=== PATIENT | female | born 1935 | race Hispanic/Latino ===

== ENCOUNTER 2019-04-23 12:38 | Emergency (ER) | payer OTHER ==
[~2019-04-23 12:38] MED LIST: BIMA12.5OS OU; CETI10TA86 PO; CHOL200059 PO; COMB5OS OU; CYAN-52 PO; ESOM40SU PO; ESTRACE VAG CREAM; FURO20TA6 PO; MULT-1203 PO; NIFE30TA10 PO; ONDA8TAB11 PO; PILO4OS OU
[2019-04-23] MEDS ORDERED: ACETAMINOPHEN-CODEINE 300/30MG TAB ONE (13:30)
[2019-04-23 13:43] LABS: BASOPHILS % (AUTO) 0.6 % (0.0-5.0); EOSINOPHILS % (AUTO) 0.8 % (0.0-8.0); HEMATOCRIT 35.9 % (36-48); LYMPHOCYTES % (AUTO) 21.3 % (21.0-51.0); MEAN CORPUSCULAR HEMOGLOBIN 32.5 pg (27.0-33.0); MEAN CORPUSCULAR HGB CONC 32.9 g/dL (32.0-36.0); MEAN CORPUSCULAR VOLUME 98.9 fL (79-99); MONOCYTES % (AUTO) 9.2 % (3.0-13.0); NEUTROPHILS % (AUTO) 67.3 % (40.0-77.0); PLATELET COUNT (AUTO) 228 K/uL (130-400); RED BLOOD CELL COUNT(AUTO) 3.63 MIL/uL (4.00-5.50); RED CELL DISTRIBUTION WIDTH 15.7 % (11.0-15.5)
[2019-04-23 14:00] LABS: CREATININE 1.6 mg/dL (0.5-1.5); POTASSIUM 4.2 mmol/L (3.5-5.1)
== END 2019-04-23 15:42 | disposition home or self-care (01) ==
LOC: EDH 12:38
DX: S00.83XA Contusion of other part of head, initial encounter (principal); S20.219A Contusion of unspecified front wall of thorax, initial encounter; I10 Essential (primary) hypertension; I25.10 Atherosclerotic heart disease of native coronary artery without angina pectoris; F32.9 Major depressive disorder, single episode, unspecified; F41.9 Anxiety disorder, unspecified; I48.91 Unspecified atrial fibrillation; Z88.1 Allergy status to other antibiotic agents; Z91.041 Radiographic dye allergy status; Z88.2 Allergy status to sulfonamides; Z90.49 Acquired absence of other specified parts of digestive tract; Z98.890 Other specified postprocedural states; W18.2XXA Fall in (into) shower or empty bathtub, initial encounter; Y93.01 Activity, walking, marching and hiking; Y92.89 Other specified places as the place of occurrence of the external cause; Y99.8 Other external cause status
CPT/HCPCS: 36415; 70450; 71045; 80048; 85025; 93005

== ENCOUNTER 2020-02-03 09:29 | Day surgery (SDC) | payer MEDICARE ==
[2020-01-30 09:43] LABS: HEMATOCRIT 32.8 % (36-48); MEAN CORPUSCULAR HEMOGLOBIN 30.9 pg (27.0-33.0); MEAN CORPUSCULAR VOLUME 96.5 fL (79-99); RED BLOOD CELL COUNT(AUTO) 3.4 MIL/uL (4.00-5.50); RED CELL DISTRIBUTION WIDTH 14.4 % (11.0-15.5); WHITE BLOOD COUNT (AUTO) 8.1 K/uL (4.8-10.8)
[2020-01-30 09:47] LABS: APPEARANCE,URINE Clear (CLEAR); BILIRUBIN,URINE Negative (NEGATIVE); COLOR,URINE Yellow (YELLOW); GLUCOSE, URINE (UA) Negative (NEGATIVE); KETONES,URINE Negative (NEGATIVE); LEUKOCYTE ESTERASE ,URINE Large (NEGATIVE); NITRATE,URINE Negative (NEGATIVE); OCCULT BLOOD,URINE Large (NEGATIVE); PROTEIN,URINE POS 2+ mg/dL (NEGATIVE); UROBILINOGEN,URINE 0.2 mg/dL (0.2-1.0)
[2020-01-30 09:54] LABS: BACTERIA,URINE Few /HPF (None Seen); RBC,URINE 0-1 /HPF (0-1); WBC,URINE 26-50 /HPF (0-1)
[2020-01-30 09:55] LABS: SQUAMOUS EPITHELIAL CELL,UR Few /HPF (0-2)
[2020-01-30 09:56] LABS: INR 0.98 (0.85-1.15); PARTIAL THROMBOPLASTIN TIME 29.2 SEC (26.3-35.5); PROTHROMBIN TIME 10.6 SEC (9.6-11.6)
[2020-01-30 10:17] LABS: BILIRUBIN,TOTAL 0.5 mg/dL (0.2-1.0); TOTAL PROTEIN, SERUM 7.6 g/dL (6.0-8.3)
[2020-02-02 14:19] VITALS: BP 225/100
--- NOTE | 2020-02-02 15:21 | NUR ---
MD notified Called Dr. Burden to make him aware of abnormal labs and that as per pt's daughter, pt can not have the fleets enema done this evening as per order due to pt having colon reconstruction surgery in the past and was told she could not have anything inserted rectally. Daughter states she also notified office but no call was returned. Message was left regarding enema and labs were faxed over to office. Addendum: 02/02/20 at 1538 by SOCRATES GIBBONS RN RN Call was received from Dr. Burden's office. Stated pt can have castor oil or laxative of choice. Called Mrs. Bae (pt's daughter) and made aware
[~2020-02-03] VITALS: Ht 166.4 cm; Wt 86.0 kg
[2020-02-03] VITALS (22 sets, daily range): BP systolic 125–156; BP diastolic 45–74
[~2020-02-03 09:29] MED LIST changes: +AMIO100T4 PO; +CEPH500T PO; -CETI10TA86 PO; -CHOL200059 PO; -COMB5OS OU; -ESOM40SU PO; -ESTRACE VAG CREAM; +FOLI0.8T21 PO; +LACTATED RINGERS 1000ML 1,000 ML IV ONE; +MITOMYCIN 40 MG VIAL IV SCH; -ONDA8TAB11 PO; -PILO4OS OU; +TAMS-1 PO; +VANCOMYCIN 500MG+NS 100ML 100 ML IV SCH; +ZOSYN 3.375GM+NS 50ML 50 ML IV SCH
[2020-02-03] MEDS ORDERED: LIDOCAINE PF 2% 5ML ABBOJECT ONE (10:09)
[2020-02-03] MEDS ORDERED: SUCCINYLCHOLINE 200MG/10ML SYR ONE (10:09)
[2020-02-03] MEDS ORDERED: PROPOFOL 10 MG/ML 20ML VIAL IV ONE (10:10)
[2020-02-03] MEDS ORDERED: MITOMYCIN 40 MG VIAL ONE (10:11)
[2020-02-03] MEDS ORDERED: KETAMINE 50MG/ML SYRINGE 50 MG/ML DISP.SYRIN IV ONE (10:14)
[2020-02-03] MEDS ORDERED: ROCURONIUM 10MG/1ML SYR 10 MG/ML ML ONE (10:50)
[2020-02-03] MEDS ORDERED: PHENYLEPHRINE HCL 10 MG/ML 1ML VIAL IV ONE (11:35)
[2020-02-03] MEDS ORDERED: GLYCOPYRROLATE 1 MG/5 ML SYRINGE ONE (11:42)
[2020-02-03] MEDS ORDERED: NEOSTIGMINE 5MG/5ML SYR IV ONE (11:42)
[2020-02-03] MEDS ORDERED: ONDANSETRON HCL 4 MG/2 ML VIAL ONE (11:43)
--- NOTE | 2020-02-03 15:16 | NUR ---
vance catheter: cbi stopped after 3 hours plugged inflow port to vance catheter as ordered by dr. arevalo
== END 2020-02-03 15:10 | disposition home or self-care (01) ==
LOC: DAH 09:29
PROVIDERS: ATTEND Urology
DX: C67.9 Malignant neoplasm of bladder, unspecified (principal); N21.0 Calculus in bladder; R31.0 Gross hematuria; I10 Essential (primary) hypertension; I25.10 Atherosclerotic heart disease of native coronary artery without angina pectoris; K21.9 Gastro-esophageal reflux disease without esophagitis; J45.909 Unspecified asthma, uncomplicated; I48.91 Unspecified atrial fibrillation; M19.90 Unspecified osteoarthritis, unspecified site; Z88.1 Allergy status to other antibiotic agents; Z88.8 Allergy status to other drugs, medicaments and biological substances; Z79.899 Other long term (current) drug therapy; Z20.828 Contact with and (suspected) exposure to other viral communicable diseases
CPT/HCPCS: 36415 ×2; 52240; 71046; 80053; 81001; 82360; 85027; 85610; 85730; 87088; 93005; A4215; A4221; A4222; A4223; A4335; A4346; A4354; A4358; A4600; A4606; A4663; A4930; A6260; C9803; J0330; J2001; J2370; J2405; J2543; J2704; J2710; J3370; J3490 ×2; J7030; J7120; J9280; U0003

== ENCOUNTER 2020-03-09 10:46 | Observation (INO) | payer MEDICARE ==
[2020-03-05 09:34] LABS: EOSINOPHILS % (AUTO) 2.8 % (0.0-8.0); HEMATOCRIT 32.8 % (36-48); LYMPHOCYTES % (AUTO) 18.1 % (21.0-51.0); MEAN CORPUSCULAR HEMOGLOBIN 30.4 pg (27.0-33.0); MEAN CORPUSCULAR VOLUME 95.1 fL (79-99); MONOCYTES % (AUTO) 9.1 % (3.0-13.0); NEUTROPHILS % (AUTO) 68.4 % (40.0-77.0); PLATELET COUNT (AUTO) 348 K/uL (130-400); RED BLOOD CELL COUNT(AUTO) 3.45 MIL/uL (4.00-5.50); WHITE BLOOD COUNT (AUTO) 7.8 K/uL (4.8-10.8)
[2020-03-05 09:51] LABS: INR 0.93 (0.85-1.15); PARTIAL THROMBOPLASTIN TIME 27.2 SEC (26.3-35.5); PROTHROMBIN TIME 10.1 SEC (9.6-11.6)
[2020-03-05 09:52] LABS: ALBUMIN 2.8 g/dL (3.5-5.0); BILIRUBIN,TOTAL 0.5 mg/dL (0.2-1.0); CREATININE 1.3 mg/dL (0.5-1.5); POTASSIUM 4.1 mmol/L (3.5-5.1); TOTAL PROTEIN, SERUM 7.3 g/dL (6.0-8.3)
[2020-03-05 10:31] LABS: APPEARANCE,URINE Turbid (CLEAR); BILIRUBIN,URINE Negative (NEGATIVE); COLOR,URINE Yellow (YELLOW); GLUCOSE, URINE (UA) Negative (NEGATIVE); KETONES,URINE Trace mg/dL (NEGATIVE); LEUKOCYTE ESTERASE ,URINE Large (NEGATIVE); NITRATE,URINE Negative (NEGATIVE); OCCULT BLOOD,URINE Large (NEGATIVE); PROTEIN,URINE 300 mg/dL (NEGATIVE)
[2020-03-05 11:47] LABS: BACTERIA,URINE Many /HPF (None Seen)
[2020-03-05 13:29] VITALS: BP 140/76
[2020-03-08] MEDS: LACTATED RINGERS 1000ML 1,000 ML IV SCH ×2 (10:45→20:45)
--- NOTE | 2020-03-08 13:52 | NUR ---
REJI AT DR. WINN OFFICE NOTIFIED OF ABNORMAL UA/C&S RESULTS, FAXED PENDING RESPONSE.
[~2020-03-09] VITALS: Ht 167.6 cm; Wt 85.4 kg
[2020-03-09] VITALS (26 sets, daily range): BP systolic 106–147; BP diastolic 40–76
[2020-03-09] MEDS: ZOSYN 3.375GM+NS 50ML 50 ML IV SCH ×3 (06:00→22:27)
[2020-03-09] MEDS: LACTATED RINGERS 1000ML 1,000 ML IV SCH ×2 (06:45→16:45)
[~2020-03-09 10:46] MED LIST changes: -CEPH500T PO; -LACTATED RINGERS 1000ML 1,000 ML IV ONE; +LORA0.5T83 PO; +NITR100C4 PO; -VANCOMYCIN 500MG+NS 100ML 100 ML IV SCH; -ZOSYN 3.375GM+NS 50ML 50 ML IV SCH
--- NOTE | 2020-03-09 12:30 | NUR ---
PT TRANSFERRED TO ROOM 4 DAYPATIENT -TO WAIT FOR DR WINN 1400. DAYPT STAFF INFORMED
[2020-03-09] MEDS ORDERED: VANCOMYCIN 500MG+NS 100ML 100 ML IV SCH (12:45)
[2020-03-09] MEDS ORDERED: ROCURONIUM 10MG/1ML SYR 10 MG/ML ML ONE (15:38)
[2020-03-09] MEDS ORDERED: SUCCINYLCHOLINE 200MG/10ML SYR ONE (15:38)
[2020-03-09] MEDS ORDERED: LIDOCAINE PF 2% 5ML ABBOJECT ONE (15:38)
[2020-03-09] MEDS ORDERED: FENTANYL CITRATE PF 50 MCG/1 ML 2ML VIAL ONE ×2 (15:38→16:25)
[2020-03-09] MEDS ORDERED: PROPOFOL 10 MG/ML 20ML VIAL IV ONE (15:38)
[2020-03-09] MEDS ORDERED: EPHEDRINE SULFATE 50 MG/ML AMPULE ONE (16:23)
[2020-03-09] MEDS ORDERED: AMINOCAPROIC ACID 250 MG/ML 20 ML VIAL ONE ×2 (17:47→17:48)
[2020-03-09] MEDS ORDERED: GLYCOPYRROLATE 1 MG/5 ML SYRINGE ONE (17:49)
[2020-03-09] MEDS ORDERED: NEOSTIGMINE 5MG/5ML SYR IV ONE (17:49)
[2020-03-09] MEDS ORDERED: MIDAZOLAM HCL 1 MG/ML 2ML VIAL ONE (18:17)
[2020-03-09 19:15] LABS: BASOPHILS % (AUTO) 0.8 % (0.0-5.0); EOSINOPHILS % (AUTO) 2.1 % (0.0-8.0); HEMATOCRIT 32.4 % (36-48); MEAN CORPUSCULAR HEMOGLOBIN 30.4 pg (27.0-33.0); MEAN CORPUSCULAR HGB CONC 32.1 g/dL (32.0-36.0); MEAN CORPUSCULAR VOLUME 94.7 fL (79-99); NEUTROPHILS % (AUTO) 85.5 % (40.0-77.0); PLATELET COUNT (AUTO) 327 K/uL (130-400); RED BLOOD CELL COUNT(AUTO) 3.42 MIL/uL (4.00-5.50); WHITE BLOOD COUNT (AUTO) 7.1 K/uL (4.8-10.8)
[2020-03-09 19:20] LABS: CREATININE 1.2 mg/dL (0.5-1.5); POTASSIUM 3.6 mmol/L (3.5-5.1)
--- NOTE | 2020-03-09 19:20 | NUR ---
ADMIT PT RECEIVED FROM ROBERTA, PACU NURSE. PT IS AA0X2, NO COMPLAINTS MADE AT THIS TIME. WITH CBI ONGOING LIGHT PINK OUTPUT CONTINUED. IVF OF NS WITH AMICAR CONTINUED AT 75CC/HR INFUSION. KEPT WARM AND COMFORTABLE IN BED. POST OP V/S STARTED, STABLE. ADMISSION CARED ONE. ADMISSION DATA BASE COMPLETED. PT'S DAUGHTER IS STAYING THE NIGHT. RESOURCE NURSE AWARE AND SECURITY GUARDS MADE AWARE. IN FOR MORE CARE AND MANAGEMENT. Addendum: 03/09/20 at 2221 by MCKINLEY COURTNEY RN RN Amended: Links added.
[2020-03-09 19:25] LABS: ALBUMIN 2.6 g/dL (3.5-5.0); BILIRUBIN,TOTAL 0.8 mg/dL (0.2-1.0)
[2020-03-09] MEDS ORDERED: ONDANSETRON HCL 4 MG/2 ML VIAL IVP PRN (21:15)
[2020-03-09] MEDS ORDERED: MEPERIDINE-PF 75 MG/ML SYG IM PRN (21:15)
[2020-03-09] MEDS ORDERED: LORAZEPAM 0.5 MG TABLET PO PRN (21:30)
[2020-03-09] MEDS ORDERED: ACETAMINOPHEN-CODEINE 300/30MG TAB PO PRN (21:30)
[2020-03-09] MEDS ORDERED: ACETAMINOPHEN 325 MG TAB PO PRN (21:30)
--- NOTE | 2020-03-09 22:30 | NUR ---
MEDS PT RESTING WELL, NO DISTRESS NOTED. CBI CONTINUED, TITRATED INFUSION SLOWER OUTPUT IS ALREADY CLEAR LIGHT PINK IN COLOR. ZOSYN IV HUNG. KEPT COMFORTABLE IN BED. CALL LIGHT WITHIN REACH. FAMILY AT BEDSIDE IN ATTENDANCE TO NEEDS AT THIS TIME.
--- NOTE | 2020-03-10 02:00 | NUR ---
ROUNDS PT RESTING WELL, FAIRLY ASLEEP WITH RESPIRATIONS EVEN AND UNLABORED. NO NOTED DISTRESS. KEPT UNDISTURBED FOR NOW. CONTINUED CBI, STILL WITH LIGHT PINK COLORED OUTPUT, CLEAR. WILL CONTINUE TO MONITOR.
[2020-03-10 04:20] VITALS: BP 115/65
[2020-03-10] MEDS: ZOSYN 3.375GM+NS 50ML 50 ML IV SCH (04:56)
[2020-03-10 05:52] LABS: HEMATOCRIT 29.1 % (36-48); MEAN CORPUSCULAR HEMOGLOBIN 29.6 pg (27.0-33.0); MEAN CORPUSCULAR HGB CONC 31.3 g/dL (32.0-36.0); MEAN CORPUSCULAR VOLUME 94.8 fL (79-99); RED BLOOD CELL COUNT(AUTO) 3.07 MIL/uL (4.00-5.50); RED CELL DISTRIBUTION WIDTH 15.1 % (11.0-15.5)
[2020-03-10] MEDS ORDERED: LACTATED RINGERS 1000ML 1,000 ML IV SCH (06:00)
--- NOTE | 2020-03-10 06:05 | NUR ---
ROUNDS PT RESTING WELL. NO CONCERNS VERBALIZED. CBI OUTPUT ALREADY CLEAR. TITRATED TO SLOW DRIP AT THIS TIME. FOR MORE CARE.
[2020-03-10 06:11] LABS: CREATININE 1.2 mg/dL (0.5-1.5)
--- NOTE | 2020-03-10 06:44 | NUR ---
PAGED DR WINN PAGED VIA ANSWERING SERVICE TO INFORM OF CRITICAL VALUE OF KCL=3.0. AWAITING CALL BACK.
--- NOTE | 2020-03-10 06:48 | NUR ---
MD DR WINN CALLED BACK, NEW MED ORDER GIVEN. PLEASE REFER TO CPOE.
[2020-03-10] MEDS ORDERED: POTASSIUM CHLORIDE 20 MEQ ERTAB PO PRN (07:00)
[2020-03-10] MEDS ORDERED: POTASSIUM CHLORIDE 20MEQ/100ML 100 ML IV PRN (07:00)
[2020-03-10] MEDS ORDERED: LIDOCAINE HCL-MPF 1% 2ML VIAL IV PRN (07:00)
--- NOTE | 2020-03-10 08:05 | NUR ---
CLAMPED CBI OUTPUT IS CLEAR AND VERY LIGHT YELLOW. CLAMPED CBI FOR NOW. ENDORSED TO AM SHIFT NURSE, SITA, FOR MORE CARE AND MANAGEMENT.
[2020-03-10] MEDS: POTASSIUM CHLORIDE 10% ELIXIR 20 MEQ/15 ML UDCUP PO PRN ×2 (08:38→10:51)
[2020-03-10] MEDS ORDERED: BRIM5DRO OP (08:48)
[2020-03-10] MEDS ORDERED: LUMIGAN PO SCH (09:00)
[2020-03-10] MEDS ORDERED: FUROSEMIDE 20 MG TABLET PO SCH (09:00)
[2020-03-10] MEDS ORDERED: Vitamin B Complex/Vit C/Folic Acid PO SCH (09:00)
[2020-03-10] MEDS ORDERED: AMIODARONE HCL 200 MG TABLET PO SCH (09:00)
[2020-03-10] MEDS ORDERED: MULTIVITAMIN TABLET PO SCH (09:00)
[2020-03-10] MEDS ORDERED: NIFEDIPINE ER 30 MG TAB PO SCH (09:00)
[2020-03-10] MEDS ORDERED: NITROFURANTOIN MONOHYD/M-CRYST 100 MG CAPSULE PO SCH (09:00)
[2020-03-10] MEDS ORDERED: TAMSULOSIN HCL 0.4 MG CAP.ER.24H PO SCH (09:00)
[2020-03-10] MEDS ORDERED: CYANOCOBALAMIN (VITAMIN B-12) 1,000 MCG TABLET PO SCH (09:00)
[2020-03-10 09:59] VITALS: BP 124/61
--- NOTE | 2020-03-10 11:36 | NUR ---
[id number] patient's daughter signed CASTANEDA Letter, I faxed CASTANEDA Letter to [phone] and placed in chart under consent tab
--- NOTE | 2020-03-10 12:52 | NUR ---
physician rounding - Dr. Burden at bedside, assessed and talked to pt and daughter. pt is for discharge today with vance catheter
[2020-03-10] MEDS ORDERED: FERS325 PO (13:21)
[2020-03-10] MEDS ORDERED: FOLI1 PO (13:22)
[2020-03-10] MEDS ORDERED: ACET-2743 PO (13:23)
[2020-03-10 13:25] VITALS: BP 113/50
--- NOTE | 2020-03-10 14:30 | NUR ---
pt is discharged in stable condition, verbal and written discharge instructions given to daughter.prescription given, informed of the follow up appointment.informed to call the doctor for further concerns.daughter voiced understanding to all things discussed. Addendum: 03/10/20 at 1504 by SITA BOYKIN RN Amended: Links added.
--- NOTE | 2020-03-10 15:00 | NUR ---
pt is dismissed in stalbe condition, brought to private car via wheelchair by pooja - dave Addendum: 03/10/20 at 1906 by SITA BOYKIN RN Amended: Links added.
--- NOTE | 2020-03-10 16:24 | NUR ---
RD NOTIFICATION Pt admitted with Bladder CA. Pt is tolerating Heart Healthy diet order, no report of GI distress, Good PO intake at 50-75% as per family member. LBM 03/09/20. Monitored labs: K 3.0, GFR 45, Ca 8.2, Alb 2.6. Obesity I status, advanced age, no desire for weight loss. Nephrovite, B12, MVI, Lasix, KCl medications in place. Recommend continue current diet order RD to continue to monitor.
== END 2020-03-10 15:00 | disposition home or self-care (01) ==
LOC: DAH 10:46 → 3DH 10:47
PROVIDERS: ADMIT Urology; ATTEND Urology
DX: C67.9 Malignant neoplasm of bladder, unspecified (principal); Z20.828 Contact with and (suspected) exposure to other viral communicable diseases; E78.00 Pure hypercholesterolemia, unspecified; H91.90 Unspecified hearing loss, unspecified ear; I10 Essential (primary) hypertension; Z85.42 Personal history of malignant neoplasm of other parts of uterus; Z85.528 Personal history of other malignant neoplasm of kidney; Z90.5 Acquired absence of kidney; Z79.899 Other long term (current) drug therapy
CPT/HCPCS: 36415 ×3; 52240; 71046; 80048; 80053 ×2; 81001; 85025 ×2; 85027; 85610; 85730; 86850 ×2; 86900 ×2; 86901 ×2; 87077; 87088; 87186; 93005; 96361; 96365; 96366 ×2; 96367; A4215; A4221; A4222; A4223 ×2; A4354; A4358; A4663; A4930; A5113; C1758 ×2; C9803; G0378 ×26; J0330; J2001; J2250; J2543 ×3; J2704; J2710; J3370; J3480; J3490 ×4; J7030; J7120 ×4; U0003; 96368; J3010; J9280

== ENCOUNTER 2020-04-11 12:13 | Inpatient (IN) | payer MEDICARE ==
[~2020-04-11] VITALS: Ht 170.2 cm; Wt 98.4 kg
[~2020-04-11 12:13] MED LIST changes: +ACET-2743 PO; +BRIM5DRO OP; +FERS325 PO; +FOLI1 PO; -MITOMYCIN 40 MG VIAL IV SCH
[2020-04-11] MEDS ORDERED: PROCHLORPERAZINE EDISYLATE 10 MG/2 ML VIAL ONE (12:37)
[2020-04-11] MEDS ORDERED: LACTATED RINGERS 1000ML 1,000 ML IV ONE (12:38)
[2020-04-11] MEDS ORDERED: MORPHINE SULFATE 2 MG/ML 1ML SYG ONE ×2 (12:38→16:11)
[2020-04-11 13:12] LABS: HEMATOCRIT 25.9 % (36-48); LYMPHOCYTES % (AUTO) 32.7 % (21.0-51.0); MEAN CORPUSCULAR HEMOGLOBIN 29.7 pg (27.0-33.0); MEAN CORPUSCULAR HGB CONC 32.8 g/dL (32.0-36.0); MEAN CORPUSCULAR VOLUME 90.6 fL (79-99); NEUTROPHILS % (AUTO) 65.3 % (40.0-77.0); PLATELET COUNT (AUTO) 88 K/uL (130-400); RED BLOOD CELL COUNT(AUTO) 2.86 MIL/uL (4.00-5.50); RED CELL DISTRIBUTION WIDTH 15.9 % (11.0-15.5)
[2020-04-11 13:18] LABS: POTASSIUM 3.7 mmol/L (3.5-5.1)
[2020-04-11 13:19] LABS: INR 1.04 (0.85-1.15); PARTIAL THROMBOPLASTIN TIME 28.4 SEC (26.3-35.5); PROTHROMBIN TIME 11.2 SEC (9.6-11.6)
[2020-04-11 13:32] LABS: ALBUMIN 2.3 g/dL (3.5-5.0); MAGNESIUM 1.6 mg/dL (1.80-2.40); TOTAL PROTEIN, SERUM 5.2 g/dL (6.0-8.3)
[2020-04-11 13:41] LABS: CRP QUANTITATIVE 201.5 mg/L (0.00-9.0)
[2020-04-11 13:45] LABS: CREATININE 1.3 mg/dL (0.5-1.5)
[2020-04-11 13:47] LABS: WHITE BLOOD COUNT (AUTO) 0.5 K/uL (4.8-10.8)
[2020-04-11] MEDS ORDERED: ZOSYN 3.375GM+NS 50ML 50 ML IV ONE (15:12)
[2020-04-11] MEDS ORDERED: SODIUM CHLORIDE 0.9% 1000ML 1,000 ML IV ONE (15:12)
[2020-04-11] MEDS: SODIUM CHLORIDE 0.9% 1000ML 1,000 ML IV SCH (15:30)
[2020-04-11 15:39] LABS: APPEARANCE,URINE CLOUDY (CLEAR); BILIRUBIN,URINE NEGATIVE (NEGATIVE); COLOR,URINE YELLOW (YELLOW); GLUCOSE, URINE (UA) NEGATIVE (NEGATIVE); KETONES,URINE NEGATIVE (NEGATIVE); LEUKOCYTE ESTERASE ,URINE TRACE (NEGATIVE); NITRATE,URINE NEGATIVE (NEGATIVE); OCCULT BLOOD,URINE MODERATE (NEGATIVE); PH,URINE 7.5 (5.0-8.0); PROTEIN,URINE 100 mg/dL (NEGATIVE)
[2020-04-11 15:40] LABS: B-TYPE NATRIURETIC PEPTIDE 128 pg/mL (0-100)
[2020-04-11 15:51] LABS: BACTERIA,URINE Many /HPF (None Seen); MUCUS,URINE Few LPF (None Seen); SQUAMOUS EPITHELIAL CELL,UR 0-2 /HPF (0-2)
[2020-04-11 19:45] VITALS: BP 150/66
--- NOTE | 2020-04-11 19:45 | NUR ---
ADMIT PT ADMITTED TO ROOM 316, AAOX3 AND IS MOANING, COMPLAINING OF ABDOMINAL PAINS. PLACED PT COMFORTABLY IN BED WITH HOB ELEVATED. PT HAD AN EPISODE OF EMESIS. CONTINUED IVF FROM ER OF NS REGULATED AT 100CC/HR. ADMISSION CARE DONE. ADMISSION DATA BASE COMPLETED. WILL CHECK MD ORDERS FOR MEDS AND WILL MEDICATE PT. IN FOR MORE CARE AND MANAGEMENT. Addendum: 04/11/20 at 2221 by MCKINLEY COURTNEY RN RN Amended: Links added.
[2020-04-11] MEDS: ONDANSETRON HCL 4 MG/2 ML VIAL IVP PRN (20:13)
[2020-04-11] MEDS: VANCOMYCIN 1GM+NS 250ML 250 ML IV SCH (20:13)
[2020-04-11] MEDS: MORPHINE SULFATE 2 MG/ML 1ML SYG IVP PRN (20:14)
[2020-04-11] MEDS: TBO-FILGRASTIM 480 MCG/0.8 ML ML SQ SCH (21:03)
--- NOTE | 2020-04-11 22:00 | NUR ---
ROUNDS PT IS RESTING WELL, FAIRLY ASLEEP. NO DISTRESS NOTED. KEPT UNDISTURBED FOR NOW. WILL CONTINUE TO MONITOR. CALL LIGHT WITHIN REACH.
[2020-04-11] MEDS ORDERED: OXYB10TA30 PO (22:38)
[2020-04-11] MEDS ORDERED: CEPH500C2 PO (22:38)
[2020-04-11] MEDS ORDERED: DIPH1TAB24 PO (22:38)
[2020-04-11] MEDS ORDERED: MAGN400T53 PO (22:38)
[2020-04-11] MEDS ORDERED: OMEP20CA12 PO (22:38)
[2020-04-11] MEDS ORDERED: ACET-66 PO (22:38)
[2020-04-11] MEDS ORDERED: ONDA8TAB12 PO (22:39)
[2020-04-11] MEDS ORDERED: ONDANSETRON ODT 4 MG TAB PO PRN (23:15)
[2020-04-11] MEDS ORDERED: DIPHENOXYLATE HCL/ATROPINE 2.5/0.025 MG TAB PO PRN (23:15)
[2020-04-11] MEDS ORDERED: LORAZEPAM 0.5 MG TABLET PO PRN (23:15)
[2020-04-11] MEDS ORDERED: MAGNESIUM OXIDE 400 MG TABLET PO PRN (23:15)
[2020-04-11 23:58] VITALS: BP 147/85
[2020-04-12] MEDS: SODIUM CHLORIDE 0.9% 1000ML 1,000 ML IV SCH ×3 (01:05→20:00)
--- NOTE | 2020-04-12 02:00 | NUR ---
ROUNDS PT RESTING WELL, FAIRLY ASLEEP WITH RESPIRATIONS EVEN AND UNLABORED. NO DISTRESS NOTED. KEPT UNDISTURBED FOR NOW. WILL CONTINUE TO MONITOR. CALL LIGHT WITHIN REACH.
[2020-04-12] MEDS: ZOSYN 3.375GM+NS 50ML 50 ML IV SCH ×2 (03:05→16:55)
[2020-04-12 05:00] VITALS: BP 147/80
--- NOTE | 2020-04-12 05:41 | NUR ---
ROUNDS PT RESTING WELL, NO DISTRESS NOTED. NO CONCERNS VERBALIZED. KEPT RESTED. FOR MORE CARE AND MANAGEMENT.
[2020-04-12 07:53] LABS: BASOPHILS % (AUTO) 1.7 % (0.0-5.0); HEMATOCRIT 23.5 % (36-48); MEAN CORPUSCULAR HEMOGLOBIN 30.4 pg (27.0-33.0); MEAN CORPUSCULAR HGB CONC 33.2 g/dL (32.0-36.0); MEAN CORPUSCULAR VOLUME 91.4 fL (79-99); MONOCYTES % (AUTO) 3.5 % (3.0-13.0); NEUTROPHILS % (AUTO) 73.1 % (40.0-77.0); PLATELET COUNT (AUTO) 74 K/uL (130-400); RED BLOOD CELL COUNT(AUTO) 2.57 MIL/uL (4.00-5.50); RED CELL DISTRIBUTION WIDTH 15.7 % (11.0-15.5); WHITE BLOOD COUNT (AUTO) 1.2 K/uL (4.8-10.8)
[2020-04-12 08:00] VITALS: BP 142/75
[2020-04-12] MEDS ORDERED: PANTOPRAZOLE 40 MG/VIAL IVP SCH (09:00)
[2020-04-12] MEDS: VANCOMYCIN 1GM+NS 250ML 250 ML IV SCH (10:57)
[2020-04-12] MEDS: TIMOLOL MALEATE 0.5% 5 ML BOTTLE OP SCH ×2 (10:58→20:02)
[2020-04-12] MEDS: BRIMONIDINE TARTRATE 0.2% 5 ML BOTTLE OP SCH ×2 (10:59→20:02)
[2020-04-12 11:00] VITALS: BP 149/74
[2020-04-12] MEDS: NIFEDIPINE ER 30 MG TAB PO SCH (11:04)
[2020-04-12] MEDS: Vitamin B Complex/Vit C/Folic Acid PO SCH (11:04)
[2020-04-12] MEDS: FUROSEMIDE 20 MG TABLET PO SCH (11:05)
[2020-04-12] MEDS: PANTOPRAZOLE SODIUM 40 MG TABLET.DR PO SCH (11:07)
[2020-04-12] MEDS: TBO-FILGRASTIM 480 MCG/0.8 ML ML SQ SCH (11:07)
[2020-04-12] MEDS: AMIODARONE HCL 200 MG TABLET PO SCH (11:07)
[2020-04-12] MEDS: CYANOCOBALAMIN (VITAMIN B-12) 1,000 MCG TABLET PO SCH (11:28)
--- NOTE | 2020-04-12 11:57 | NUR ---
RD NOTIFICATION Pt admitted due to neutropenia/emesis Pt has hx of bladder cancer with recent invasive sx and treatment of chemotherapy and radiation, as per EMR. Pt is currently on a CLD. No PO intake recorded in EMR. As per previous EMR, pt's wt remained stable as of January 2020. RD RECOMMENDATION: When medically feasible to advance diet consider, Heart healthy diet. Monitor PO intake, and tolerance Pt may benefit from GI soft modifier due to reflux disease. Ensure BID if PO intake <50% ProMod 60 ml QD if pt's PO intake <75% LABS: ALB 2.3, TOT PRO 5.2, TOT CA 8.3, WBC 1.2, HGB 7.8, CREAT 1.3, MG 1.6 Addendum: 04/12/20 at [address] Amended: Links added.
--- NOTE | 2020-04-12 13:16 | NUR ---
GURPREET NOTE/IA MET WITH PATIENT AND DAUGHTER, AMADO, AT BEDSIDE. PER PATIENT, IS HARD OF HEARING AND OK TO ASK DAUGHTER QUESTIONS. PER DAUGHTER, PATIENT LIVES ALONE, INDEPENDENT WITH ADLS, NO USE OF PROVIDER OR HOME HEALTH SERVICES, HAS USE OF ROLLATOR WALKER, FAMILY DRIVES TO APPOINTMENTS AND FEELS SAFE TO RETURN HOME ONCE DISCHARGED FROM HOSPITAL. PER DAUGHTER, OK TO PLACE HER AT SECOND OF KIN AFTER MPO, RL PAUL. INFORMATION FOLLOWS: AMADO MITTAL [phone]. NUMBER GIVEN TO REGISTRATION TO ADD ON FACESHEET. Addendum: 04/12/20 at 1320 by POLA HENRY RN CM Amended: Links added.
[2020-04-12] MEDS ORDERED: VANCOMYCIN PROTOCOL PER PHARMACY IV SCH (13:30)
[2020-04-12] MEDS: ONDANSETRON HCL 4 MG/2 ML VIAL IVP PRN ×2 (13:51→21:33)
[2020-04-12] MEDS ORDERED: VANCOMYCIN 1GM+NS 250ML 250 ML IV SCH (14:00)
[2020-04-12 15:49] LABS: HEMATOCRIT 24.4 % (36-48); MEAN CORPUSCULAR HGB CONC 32.4 g/dL (32.0-36.0); MEAN CORPUSCULAR VOLUME 92.8 fL (79-99); PLATELET COUNT (AUTO) 63 K/uL (130-400); RED BLOOD CELL COUNT(AUTO) 2.63 MIL/uL (4.00-5.50); RED CELL DISTRIBUTION WIDTH 15.9 % (11.0-15.5); WHITE BLOOD COUNT (AUTO) 1.5 K/uL (4.8-10.8)
[2020-04-12 16:00] VITALS: BP 137/65
[2020-04-12 16:13] LABS: PLATELET MORPHOLOGY COMMENT DECREASED
[2020-04-12] MEDS: MEGESTROL 400 MG/10 ML UDCUP PO SCH (16:55)
[2020-04-12 20:00] VITALS: BP 130/65
[2020-04-12] MEDS: OXYBUTYNIN 5 MG TAB.SR.24H PO SCH (20:00)
[2020-04-12] MEDS: MAGNESIUM 2GM PREMIX 50ML 50 ML IV PRN (20:01)
[2020-04-12] MEDS: ACETAMINOPHEN EXTRA STRENGTH 500 MG TABLET PO PRN (20:01)
[2020-04-12] MEDS: MORPHINE SULFATE 2 MG/ML 1ML SYG IVP PRN (21:28)
[2020-04-13] VITALS (7 sets, daily range): BP systolic 108–149; BP diastolic 68–80
[2020-04-13] MEDS: ZOSYN 3.375GM+NS 50ML 50 ML IV SCH ×2 (01:42→15:29)
[2020-04-13] MEDS: MORPHINE SULFATE 2 MG/ML 1ML SYG IVP PRN ×2 (03:18→09:34)
[2020-04-13] MEDS: ONDANSETRON HCL 4 MG/2 ML VIAL IVP PRN ×2 (03:18→09:33)
[2020-04-13 04:21] LABS: BASOPHILS % (AUTO) 0.8 % (0.0-5.0); HEMATOCRIT 25.1 % (36-48); LYMPHOCYTES % (AUTO) 22.7 % (21.0-51.0); MEAN CORPUSCULAR HEMOGLOBIN 29.3 pg (27.0-33.0); MEAN CORPUSCULAR HGB CONC 31.9 g/dL (32.0-36.0); MEAN CORPUSCULAR VOLUME 91.9 fL (79-99); MONOCYTES % (AUTO) 11.8 % (3.0-13.0); NEUTROPHILS % (AUTO) 63.9 % (40.0-77.0); PLATELET COUNT (AUTO) 54 K/uL (130-400); RED BLOOD CELL COUNT(AUTO) 2.73 MIL/uL (4.00-5.50); RED CELL DISTRIBUTION WIDTH 15.9 % (11.0-15.5); WHITE BLOOD COUNT (AUTO) 1.2 K/uL (4.8-10.8)
[2020-04-13] MEDS: SODIUM CHLORIDE 0.9% 1000ML 1,000 ML IV SCH ×2 (06:37→22:35)
[2020-04-13] MEDS: TBO-FILGRASTIM 480 MCG/0.8 ML ML SQ SCH (09:31)
[2020-04-13] MEDS: CYANOCOBALAMIN (VITAMIN B-12) 1,000 MCG TABLET PO SCH (09:31)
[2020-04-13] MEDS: Vitamin B Complex/Vit C/Folic Acid PO SCH (09:31)
[2020-04-13] MEDS: MEGESTROL 400 MG/10 ML UDCUP PO SCH (09:31)
[2020-04-13] MEDS: PANTOPRAZOLE SODIUM 40 MG TABLET.DR PO SCH (09:32)
[2020-04-13] MEDS: FUROSEMIDE 20 MG TABLET PO SCH (09:32)
[2020-04-13] MEDS: NIFEDIPINE ER 30 MG TAB PO SCH (09:32)
[2020-04-13] MEDS: AMIODARONE HCL 200 MG TABLET PO SCH (09:33)
[2020-04-13] MEDS: TIMOLOL MALEATE 0.5% 5 ML BOTTLE OP SCH ×2 (09:34→22:36)
[2020-04-13] MEDS: BRIMONIDINE TARTRATE 0.2% 5 ML BOTTLE OP SCH ×2 (09:35→22:35)
--- NOTE | 2020-04-13 16:10 | NUR ---
1553 BPCI Letter given
[2020-04-13] MEDS: OXYBUTYNIN 5 MG TAB.SR.24H PO SCH (22:36)
[2020-04-14] MEDS: ONDANSETRON HCL 4 MG/2 ML VIAL IVP PRN ×4 (00:52→21:28)
[2020-04-14] MEDS: MORPHINE SULFATE 2 MG/ML 1ML SYG IVP PRN ×4 (01:14→21:31)
[2020-04-14] MEDS: ZOSYN 3.375GM+NS 50ML 50 ML IV SCH ×2 (01:47→13:45)
[2020-04-14 03:26] VITALS: BP 133/59
[2020-04-14] MEDS: SODIUM CHLORIDE 0.9% 1000ML 1,000 ML IV SCH ×2 (03:30→09:58)
[2020-04-14 06:02] LABS: BASOPHILS % (AUTO) 1.4 % (0.0-5.0); LYMPHOCYTES % (AUTO) 25.7 % (21.0-51.0); MEAN CORPUSCULAR HGB CONC 31.7 g/dL (32.0-36.0); MEAN CORPUSCULAR VOLUME 91.6 fL (79-99); MONOCYTES % (AUTO) 30.6 % (3.0-13.0); PLATELET COUNT (AUTO) 38 K/uL (130-400); RED BLOOD CELL COUNT(AUTO) 2.62 MIL/uL (4.00-5.50); RED CELL DISTRIBUTION WIDTH 15.4 % (11.0-15.5); WHITE BLOOD COUNT (AUTO) 1.4 K/uL (4.8-10.8)
[2020-04-14 08:38] VITALS: BP 143/71
[2020-04-14] MEDS: VANCOMYCIN 500MG+NS 100 ML IV SCH (09:58)
[2020-04-14] MEDS: TBO-FILGRASTIM 480 MCG/0.8 ML ML SQ SCH (09:58)
[2020-04-14] MEDS: BRIMONIDINE TARTRATE 0.2% 5 ML BOTTLE OP SCH ×2 (09:59→21:34)
[2020-04-14] MEDS: PANTOPRAZOLE SODIUM 40 MG TABLET.DR PO SCH (09:59)
[2020-04-14] MEDS: TIMOLOL MALEATE 0.5% 5 ML BOTTLE OP SCH ×2 (09:59→21:34)
[2020-04-14] MEDS: AMIODARONE HCL 200 MG TABLET PO SCH (10:02)
[2020-04-14] MEDS: NIFEDIPINE ER 30 MG TAB PO SCH (10:02)
[2020-04-14] MEDS: CYANOCOBALAMIN (VITAMIN B-12) 1,000 MCG TABLET PO SCH (10:03)
[2020-04-14] MEDS: FUROSEMIDE 20 MG TABLET PO SCH (10:03)
[2020-04-14] MEDS: MEGESTROL 400 MG/10 ML UDCUP PO SCH (10:03)
[2020-04-14] MEDS: Vitamin B Complex/Vit C/Folic Acid PO SCH (10:03)
[2020-04-14 12:16] VITALS: BP 124/76
[2020-04-14] MEDS ORDERED: MORPHINE SULFATE 2 MG/ML 1ML SYG IVP ONE (16:10)
--- NOTE | 2020-04-14 17:00 | NUR ---
TOTAL [id number] ML WITH ZOFRAN ALREADYN ADMINISTERED EMESIS STARTED AT APPROXIMATELY 1330
[2020-04-14 17:19] VITALS: BP 148/85
[2020-04-14] MEDS ORDERED: SODIUM CHLORIDE 0.9% 100 ML IV ONE (19:38)
[2020-04-14 20:37] VITALS: BP 116/58
[2020-04-14] MEDS: OXYBUTYNIN 5 MG TAB.SR.24H PO SCH (21:33)
[2020-04-14 21:54] LABS: MEAN CORPUSCULAR HEMOGLOBIN 29.4 pg (27.0-33.0); MEAN CORPUSCULAR HGB CONC 32.7 g/dL (32.0-36.0); MEAN CORPUSCULAR VOLUME 89.9 fL (79-99); NUCLEATED RED BLOOD CELLS 1.5 % (0.0-0.19); RED BLOOD CELL COUNT(AUTO) 3.67 MIL/uL (4.00-5.50); RED CELL DISTRIBUTION WIDTH 15.6 % (11.0-15.5); WHITE BLOOD COUNT (AUTO) 3.9 K/uL (4.8-10.8)
[2020-04-15] VITALS: BP 120/60
[2020-04-15] MEDS: SODIUM CHLORIDE 0.9% 1000ML 1,000 ML IV SCH ×2 (03:10→09:43)
[2020-04-15] MEDS: ZOSYN 3.375GM+NS 50ML 50 ML IV SCH ×2 (03:10→15:00)
[2020-04-15 03:41] VITALS: BP 131/70
[2020-04-15] MEDS: MORPHINE SULFATE 2 MG/ML 1ML SYG IVP PRN ×3 (05:33→13:41)
[2020-04-15] MEDS: ONDANSETRON HCL 4 MG/2 ML VIAL IVP PRN ×3 (05:33→13:40)
[2020-04-15 06:05] LABS: BASOPHILS % (AUTO) 0.4 % (0.0-5.0); HEMATOCRIT 35.2 % (36-48); LYMPHOCYTES % (AUTO) 5.8 % (21.0-51.0); MEAN CORPUSCULAR HEMOGLOBIN 29.6 pg (27.0-33.0); MEAN CORPUSCULAR HGB CONC 32.7 g/dL (32.0-36.0); MEAN CORPUSCULAR VOLUME 90.5 fL (79-99); MONOCYTES % (AUTO) 24.3 % (3.0-13.0); NEUTROPHILS % (AUTO) 61.6 % (40.0-77.0); NUCLEATED RED BLOOD CELLS 2.1 % (0.0-0.19); PLATELET COUNT (AUTO) 31 K/uL (130-400); RED BLOOD CELL COUNT(AUTO) 3.89 MIL/uL (4.00-5.50); RED CELL DISTRIBUTION WIDTH 16.2 % (11.0-15.5); WHITE BLOOD COUNT (AUTO) 5.7 K/uL (4.8-10.8)
[2020-04-15 08:01] VITALS: BP 113/72
--- NOTE | 2020-04-15 09:30 | NUR ---
BILE XGUSXD=[id number]
[2020-04-15] MEDS: VANCOMYCIN 500MG+NS 100 ML IV SCH (09:40)
[2020-04-15] MEDS: AMIODARONE HCL 200 MG TABLET PO SCH (09:41)
[2020-04-15] MEDS: Vitamin B Complex/Vit C/Folic Acid PO SCH (09:42)
[2020-04-15] MEDS: FUROSEMIDE 20 MG TABLET PO SCH (09:42)
[2020-04-15] MEDS: MEGESTROL 400 MG/10 ML UDCUP PO SCH (09:42)
[2020-04-15] MEDS: NIFEDIPINE ER 30 MG TAB PO SCH (09:42)
[2020-04-15] MEDS: PANTOPRAZOLE SODIUM 40 MG TABLET.DR PO SCH (09:42)
[2020-04-15] MEDS: CYANOCOBALAMIN (VITAMIN B-12) 1,000 MCG TABLET PO SCH (09:42)
[2020-04-15] MEDS: TIMOLOL MALEATE 0.5% 5 ML BOTTLE OP SCH ×2 (09:43→23:09)
[2020-04-15] MEDS: BRIMONIDINE TARTRATE 0.2% 5 ML BOTTLE OP SCH ×2 (09:43→23:09)
--- NOTE | 2020-04-15 09:46 | NUR ---
BILE JXSETI=[id number]
[2020-04-15 11:43] VITALS: BP 114/66
--- NOTE | 2020-04-15 16:00 | NUR ---
RD FOLLOW UP Pt is currently NPO Pt was previously on a Regular diet, PO consumption for 04/14/20 was of 100% for breakfast Pt is experiencing nausea/vomiting as per MD notes RD RECOMMENDATION: IF NPO > 5 D days, consider altered nutrition means When medically feasible, consider a CLD diet, monitor tolerance, increase to a GI soft/diet assess tolerance. Consider ONS Ensure TID. ProMod 60 ml BID Pt is at higher need for protein. RD will continue to follow pt's status LABS: WBC 5.7, CO2 19, BUN 30, GFR 41, TOT CA 8.3, MG 1.6, CRP 201.5, BNP 128, TOT PRO 5.2, ALB 2.3 Addendum: 04/15/20 at [address] Amended: Links added.
[2020-04-15 16:08] VITALS: BP 110/68
[2020-04-15] MEDS ORDERED: SODIUM CHLORIDE 0.9% 1000ML 1,000 ML IV SCH (18:45)
[2020-04-15 20:00] VITALS: BP 116/66
[2020-04-15] MEDS: OXYBUTYNIN 5 MG TAB.SR.24H PO SCH (21:00)
[2020-04-16] VITALS: BP 120/61
[2020-04-16] MEDS: ZOSYN 3.375GM+NS 50ML 50 ML IV SCH ×2 (03:02→17:41)
[2020-04-16 04:00] VITALS: BP 120/59
[2020-04-16 05:21] LABS: BASOPHILS % (AUTO) 0.1 % (0.0-5.0); LYMPHOCYTES % (AUTO) 3.1 % (21.0-51.0); MEAN CORPUSCULAR HEMOGLOBIN 29.1 pg (27.0-33.0); MEAN CORPUSCULAR HGB CONC 31.9 g/dL (32.0-36.0); MEAN CORPUSCULAR VOLUME 91.2 fL (79-99); MONOCYTES % (AUTO) 17.6 % (3.0-13.0); NEUTROPHILS % (AUTO) 66.3 % (40.0-77.0); NUCLEATED RED BLOOD CELLS 0.7 % (0.0-0.19); PLATELET COUNT (AUTO) 49 K/uL (130-400); RED CELL DISTRIBUTION WIDTH 16.3 % (11.0-15.5); WHITE BLOOD COUNT (AUTO) 14.9 K/uL (4.8-10.8)
--- NOTE | 2020-04-16 06:52 | NUR ---
PATIENT UPDATE COMFORTABLE OVERNIGHT, NO COMPLAINTS OF PAIN. NO NAUSEA AND VOMITING. SALEM SUMP TUBE TO THE RT NARE TO LOW INT SUCTION, CHOWDHURY CATHETER WITH MINIMAL URINE OUTPUT. ORAL CARE DONE, REPOSITIONED IN THE BED. VITAL SIGNS STABLE.
[2020-04-16 08:00] VITALS: BP 158/77
[2020-04-16] MEDS: MEGESTROL 400 MG/10 ML UDCUP PO SCH (09:00)
[2020-04-16 11:00] VITALS: BP 107/38
[2020-04-16] MEDS: BRIMONIDINE TARTRATE 0.2% 5 ML BOTTLE OP SCH ×2 (12:43→21:08)
[2020-04-16] MEDS: TIMOLOL MALEATE 0.5% 5 ML BOTTLE OP SCH ×2 (12:43→21:08)
[2020-04-16] MEDS: CYANOCOBALAMIN (VITAMIN B-12) 1,000 MCG TABLET PO SCH (12:44)
[2020-04-16] MEDS: PANTOPRAZOLE SODIUM 40 MG TABLET.DR PO SCH (12:45)
[2020-04-16] MEDS: Vitamin B Complex/Vit C/Folic Acid PO SCH (12:45)
[2020-04-16] MEDS: FUROSEMIDE 20 MG TABLET PO SCH (12:45)
[2020-04-16] MEDS: NIFEDIPINE ER 30 MG TAB PO SCH (12:47)
[2020-04-16] MEDS: AMIODARONE HCL 200 MG TABLET PO SCH (12:48)
[2020-04-16] MEDS: SODIUM CHLORIDE 0.9% 1000ML 1,000 ML IV SCH (14:28)
[2020-04-16 16:00] VITALS: BP 148/89
[2020-04-16 20:00] VITALS: BP 140/66
[2020-04-16] MEDS: OXYBUTYNIN 5 MG TAB.SR.24H PO SCH (21:00)
[2020-04-16] MEDS: VANCOMYCIN 500MG+NS 100 ML IV SCH (21:10)
[2020-04-17] VITALS (7 sets, daily range): BP systolic 124–151; BP diastolic 65–91
[2020-04-17] MEDS: ZOSYN 3.375GM+NS 50ML 50 ML IV SCH ×2 (02:50→16:27)
[2020-04-17] MEDS: SODIUM CHLORIDE 0.9% 1000ML 1,000 ML IV SCH ×3 (03:25→23:13)
[2020-04-17 05:57] LABS: BASOPHILS % (AUTO) 0.1 % (0.0-5.0); LYMPHOCYTES % (AUTO) 4.2 % (21.0-51.0); MEAN CORPUSCULAR HEMOGLOBIN 29.5 pg (27.0-33.0); MEAN CORPUSCULAR HGB CONC 32.8 g/dL (32.0-36.0); MEAN CORPUSCULAR VOLUME 90.1 fL (79-99); MONOCYTES % (AUTO) 12.2 % (3.0-13.0); NEUTROPHILS % (AUTO) 69.3 % (40.0-77.0); NUCLEATED RED BLOOD CELLS 0.3 % (0.0-0.19); PLATELET COUNT (AUTO) 51 K/uL (130-400); RED BLOOD CELL COUNT(AUTO) 3.22 MIL/uL (4.00-5.50); RED CELL DISTRIBUTION WIDTH 16.5 % (11.0-15.5); WHITE BLOOD COUNT (AUTO) 16.3 K/uL (4.8-10.8)
[2020-04-17] MEDS: MEGESTROL 400 MG/10 ML UDCUP PO SCH (09:00)
[2020-04-17] MEDS: TIMOLOL MALEATE 0.5% 5 ML BOTTLE OP SCH ×2 (10:41→21:29)
[2020-04-17] MEDS: CYANOCOBALAMIN (VITAMIN B-12) 1,000 MCG TABLET PO SCH (10:42)
[2020-04-17] MEDS: BRIMONIDINE TARTRATE 0.2% 5 ML BOTTLE OP SCH ×2 (10:42→21:29)
[2020-04-17] MEDS: Vitamin B Complex/Vit C/Folic Acid PO SCH (10:43)
[2020-04-17] MEDS: AMIODARONE HCL 200 MG TABLET PO SCH (10:43)
[2020-04-17] MEDS: FUROSEMIDE 20 MG TABLET PO SCH (10:44)
[2020-04-17] MEDS: PANTOPRAZOLE SODIUM 40 MG TABLET.DR PO SCH (10:44)
[2020-04-17] MEDS: NIFEDIPINE ER 30 MG TAB PO SCH (10:45)
[2020-04-17] MEDS: ONDANSETRON HCL 4 MG/2 ML VIAL IVP PRN ×2 (16:27→21:35)
--- NOTE | 2020-04-17 17:40 | NUR ---
SPOKE TO DR WINN REGARDING CONSULT, PER MD WILL SEE PT TOMORROW.
[2020-04-17] MEDS ORDERED: ENOXAPARIN SODIUM 60 MG/0.6 ML SQ ONE (21:13)
[2020-04-17 21:22] LABS: CREATININE 2.5 mg/dL (0.5-1.5); POTASSIUM 3.1 mmol/L (3.5-5.1)
[2020-04-17] MEDS: VANCOMYCIN 500MG+NS 100 ML IV SCH (21:27)
[2020-04-17] MEDS: OXYBUTYNIN 5 MG TAB.SR.24H PO SCH (21:35)
[2020-04-17] MEDS ORDERED: BISACODYL 10 MG SUPP.RECT RC ONE (21:40)
[2020-04-18] MEDS: ZOSYN 3.375GM+NS 50ML 50 ML IV SCH ×2 (02:56→18:43)
[2020-04-18 03:43] VITALS: BP 166/98
[2020-04-18 04:12] VITALS: BP 153/79
[2020-04-18 06:28] LABS: ALBUMIN 1.9 g/dL (3.5-5.0); BILIRUBIN,TOTAL 0.4 mg/dL (0.2-1.0); CREATININE 2.3 mg/dL (0.5-1.5); TOTAL PROTEIN, SERUM 5.3 g/dL (6.0-8.3)
[2020-04-18 06:31] LABS: POTASSIUM 2.9 mmol/L (3.5-5.1)
[2020-04-18 08:00] VITALS: BP 142/84
[2020-04-18] MEDS: MEGESTROL 400 MG/10 ML UDCUP PO SCH (09:00)
[2020-04-18] MEDS ORDERED: ENOXAPARIN SODIUM 60 MG/0.6 ML SQ SCH (09:00)
[2020-04-18 10:05] LABS: BASOPHILS % (AUTO) 0.2 % (0.0-5.0); HEMATOCRIT 28.9 % (36-48); LYMPHOCYTES % (AUTO) 2.9 % (21.0-51.0); MEAN CORPUSCULAR HEMOGLOBIN 29.9 pg (27.0-33.0); MEAN CORPUSCULAR HGB CONC 32.2 g/dL (32.0-36.0); MEAN CORPUSCULAR VOLUME 92.9 fL (79-99); NEUTROPHILS % (AUTO) 66.6 % (40.0-77.0); NUCLEATED RED BLOOD CELLS 0.4 % (0.0-0.19); PLATELET COUNT (AUTO) 62 K/uL (130-400); RED BLOOD CELL COUNT(AUTO) 3.11 MIL/uL (4.00-5.50); RED CELL DISTRIBUTION WIDTH 16.6 % (11.0-15.5); WHITE BLOOD COUNT (AUTO) 12.8 K/uL (4.8-10.8)
[2020-04-18] MEDS: BRIMONIDINE TARTRATE 0.2% 5 ML BOTTLE OP SCH ×2 (11:28→22:01)
[2020-04-18] MEDS: TIMOLOL MALEATE 0.5% 5 ML BOTTLE OP SCH ×2 (11:28→22:01)
[2020-04-18] MEDS: PANTOPRAZOLE SODIUM 40 MG TABLET.DR PO SCH (11:37)
[2020-04-18] MEDS: POTASSIUM CHLORIDE 10MEQ/100ML 100 ML IV PRN (11:37)
[2020-04-18] MEDS: Vitamin B Complex/Vit C/Folic Acid PO SCH (11:38)
[2020-04-18] MEDS: ONDANSETRON HCL 4 MG/2 ML VIAL IVP PRN (11:38)
[2020-04-18] MEDS: CYANOCOBALAMIN (VITAMIN B-12) 1,000 MCG TABLET PO SCH (11:38)
[2020-04-18] MEDS: NIFEDIPINE ER 30 MG TAB PO SCH (11:38)
[2020-04-18] MEDS: AMIODARONE HCL 200 MG TABLET PO SCH (11:39)
[2020-04-18] MEDS: LIDOCAINE HCL-MPF 1% 2ML VIAL IV PRN (11:39)
[2020-04-18 12:00] VITALS: BP 138/80
[2020-04-18] MEDS ORDERED: TAMS-1 PO (12:12)
[2020-04-18] MEDS ORDERED: FUROSEMIDE 20 MG TABLET PO SCH (12:30)
[2020-04-18 16:00] VITALS: BP 145/88
[2020-04-18 20:00] VITALS: BP 113/44
[2020-04-18] MEDS: SODIUM CHLORIDE 0.9% 1000ML 1,000 ML IV SCH (20:22)
[2020-04-18] MEDS: VANCOMYCIN 500MG+NS 100 ML IV SCH (20:57)
[2020-04-18] MEDS: ENOXAPARIN SODIUM 60 MG/0.6 ML SQ SCH (21:59)
[2020-04-18] MEDS: OXYBUTYNIN 5 MG TAB.SR.24H PO SCH (21:59)
[2020-04-19] VITALS (7 sets, daily range): BP systolic 106–150; BP diastolic 60–85
[2020-04-19] MEDS: SODIUM CHLORIDE 0.9% 1000ML 1,000 ML IV SCH (02:49)
[2020-04-19] MEDS: ZOSYN 3.375GM+NS 50ML 50 ML IV SCH ×2 (02:52→15:17)
[2020-04-19] MEDS: MEGESTROL 400 MG/10 ML UDCUP PO SCH (09:00)
[2020-04-19] MEDS: BRIMONIDINE TARTRATE 0.2% 5 ML BOTTLE OP SCH ×2 (09:00→21:08)
[2020-04-19] MEDS: TIMOLOL MALEATE 0.5% 5 ML BOTTLE OP SCH ×2 (09:00→21:09)
[2020-04-19] MEDS: AMIODARONE HCL 200 MG TABLET PO SCH (09:00)
[2020-04-19] MEDS: Vitamin B Complex/Vit C/Folic Acid PO SCH (09:00)
[2020-04-19] MEDS: NIFEDIPINE ER 30 MG TAB PO SCH (09:00)
[2020-04-19] MEDS ORDERED: PHARMACY COMMUNICATION MISC SCH (11:15)
[2020-04-19] MEDS ORDERED: PANTOPRAZOLE 40 MG/VIAL IV SCH (13:06)
[2020-04-19] MEDS ORDERED: LORAZEPAM 2 MG/ML 1 ML VIAL IVP PRN (13:15)
--- NOTE | 2020-04-19 13:22 | NUR ---
RD FOLLOW UP Pt is currently NPO since 04/19/20 Previous diet of CLD with a PO of 25-50% As per EMR, multiple dilated bowel loops Pending general sx to manage bowel Pt has NG suction tube with green drainage as per EMR RD RECOMMENDATION: If NPO >5 days consider alerted nutrition means When medically feasible to advance diet follow general sx recommendations RD will Continue to follow Contact as nutritional concerns arise LABS: WBC 12.8, K 2.9, BUN 47, CL 113, CREAT 2.3, TOT PRO 5.3, ALB 1.9 LBM: 04/14/20 Addendum: 04/19/20 at [address] Amended: Links added.
[2020-04-19] MEDS: LACTATED RINGERS 1000ML 1,000 ML IV SCH (15:17)
[2020-04-19] MEDS: POTASSIUM CHLORIDE 10MEQ/100ML 100 ML IV PRN ×2 (15:17→23:48)
[2020-04-19] MEDS: FUROSEMIDE 10 MG/ML 2ML VIAL IV SCH (15:19)
[2020-04-19] MEDS: OXYBUTYNIN 5 MG TAB.SR.24H PO SCH (21:00)
[2020-04-19] MEDS: ENOXAPARIN SODIUM 60 MG/0.6 ML SQ SCH (21:07)
--- NOTE | 2020-04-19 21:10 | NUR ---
MEDS SHIFT ASSESSMENT DONE, PLEASE REFER TO CHART. C-XRAY DONE AND FILM SEEN NOTED NGT STILL LOOPED WITHIN THE ESOPHAGUS. INFORMED PT THAT NGT NEEDED TO BE EXCHANGED. PT VERBALLY CONSENT THEN REMOVED NGT WITH CATHETER INTACT. RE-INSERTED PANAMANIAN 16 NGT AND VERIFIED PLACEMENT. SECOND RN VERIFICATION DONE BY KHADAR DOYLE. PT THEN COMPLAINTS OF HAVING WET LINEN. WHEN CHECKED PT IS WET WITH URINE AND NOTED F/C OUT ALREADY WITH CATHETER INTACT. RE-INSERTED F/C PANAMANIAN 16 USING ASEPTIC TECHNIQUE THEN SECURED TO PT'S LEG. DUE IV MEDS ADMINISTERED AND PO HELD FOR NOW. PCP IN AND GAVE PT A BED BATH, TOLERATED ACTIVITY WELL. KEPT NPO. POSITIONED COMFORTABLY IN BED WITH HOB ELEVATED. WILL MONITOR CLOSELY. Addendum: 04/19/20 at 2254 by MCKINLEY COURTNEY RN RN Amended: Links added.
[2020-04-19] MEDS: LIDOCAINE HCL-MPF 1% 2ML VIAL IV PRN (23:50)
--- NOTE | 2020-04-20 02:00 | NUR ---
ROUNDS PT RESTING WELL, FAIRLY ASLEEP. NO DISTRESS NOTED. KEPT UNDISTURBED FOR NOW. WILL CONTINUE TO MONITOR.
[2020-04-20] MEDS: ZOSYN 3.375GM+NS 50ML 50 ML IV SCH ×2 (02:58→14:28)
[2020-04-20] MEDS: LACTATED RINGERS 1000ML 1,000 ML IV SCH ×3 (03:02→16:31)
[2020-04-20] MEDS: POTASSIUM CHLORIDE 10MEQ/100ML 100 ML IV PRN ×2 (03:33→09:40)
[2020-04-20] MEDS: LIDOCAINE HCL-MPF 1% 2ML VIAL IV PRN (03:33)
[2020-04-20 03:58] VITALS: BP 148/71
[2020-04-20 04:47] LABS: BASOPHILS % (AUTO) 0.8 % (0.0-5.0); HEMATOCRIT 25.4 % (36-48); LYMPHOCYTES % (AUTO) 4.3 % (21.0-51.0); MEAN CORPUSCULAR HEMOGLOBIN 29.6 pg (27.0-33.0); MEAN CORPUSCULAR HGB CONC 32.3 g/dL (32.0-36.0); MEAN CORPUSCULAR VOLUME 91.7 fL (79-99); NEUTROPHILS % (AUTO) 63.7 % (40.0-77.0); PLATELET COUNT (AUTO) 90 K/uL (130-400); RED BLOOD CELL COUNT(AUTO) 2.77 MIL/uL (4.00-5.50); RED CELL DISTRIBUTION WIDTH 17.1 % (11.0-15.5); WHITE BLOOD COUNT (AUTO) 9.9 K/uL (4.8-10.8)
[2020-04-20 05:01] LABS: ALBUMIN 1.7 g/dL (3.5-5.0); BILIRUBIN,TOTAL 0.4 mg/dL (0.2-1.0); CREATININE 1.7 mg/dL (0.5-1.5); MAGNESIUM 2.7 mg/dL (1.80-2.40); PHOSPHORUS 2.2 mg/dL (2.5-4.9); TOTAL PROTEIN, SERUM 4.8 g/dL (6.0-8.3); URIC ACID 5.3 mg/dL (2.6-7.2)
[2020-04-20 05:12] LABS: POTASSIUM 2.9 mmol/L (3.5-5.1)
--- NOTE | 2020-04-20 06:00 | NUR ---
HUNG PT RESTING WELL. NO DISTRESS NOTED. SLEPT AT INTERVALS DURING THE SHIFT. NEW IV BAG AND NEW TUBINGS HUNG. KEPT COMFORTABLE. FOR MORE CARE.
[2020-04-20 06:27] LABS: APPEARANCE,URINE CLOUDY (CLEAR); BILIRUBIN,URINE NEGATIVE (NEGATIVE); COLOR,URINE YELLOW (YELLOW); GLUCOSE, URINE (UA) NEGATIVE (NEGATIVE); KETONES,URINE NEGATIVE (NEGATIVE); LEUKOCYTE ESTERASE ,URINE MODERATE (NEGATIVE); NITRATE,URINE NEGATIVE (NEGATIVE); OCCULT BLOOD,URINE MODERATE (NEGATIVE); PROTEIN,URINE TRACE mg/dL (NEGATIVE); UROBILINOGEN,URINE 0.2 mg/dL (0.2-1.0)
[2020-04-20 06:45] LABS: BACTERIA,URINE Many /HPF (None Seen); RBC,URINE 51-100 /HPF (0-1); WBC,URINE TNTC /HPF (0-1)
[2020-04-20 06:46] LABS: MUCUS,URINE Moderate LPF (None Seen)
[2020-04-20 08:12] VITALS: BP 142/65
[2020-04-20] MEDS: NIFEDIPINE ER 30 MG TAB PO SCH (09:00)
[2020-04-20] MEDS: MEGESTROL 400 MG/10 ML UDCUP PO SCH (09:00)
[2020-04-20] MEDS: FAMOTIDINE/PF 20 MG/2 ML VIAL IV SCH (09:00)
[2020-04-20] MEDS: Vitamin B Complex/Vit C/Folic Acid PO SCH (09:00)
[2020-04-20] MEDS: AMIODARONE HCL 200 MG TABLET PO SCH (09:00)
[2020-04-20] MEDS: FUROSEMIDE 10 MG/ML 2ML VIAL IV SCH (09:40)
[2020-04-20] MEDS: CYANOCOBALAMIN (VITAMIN B-12) 1000 MCG/ML 1ML VIAL SQ SCH (09:41)
[2020-04-20] MEDS: BRIMONIDINE TARTRATE 0.2% 5 ML BOTTLE OP SCH ×2 (09:41→20:28)
[2020-04-20] MEDS: TIMOLOL MALEATE 0.5% 5 ML BOTTLE OP SCH ×2 (09:41→20:28)
[2020-04-20 11:57] VITALS: BP 147/69
[2020-04-20 15:34] VITALS: BP 155/77
[2020-04-20 19:56] VITALS: BP 138/73
[2020-04-20] MEDS: ENOXAPARIN SODIUM 60 MG/0.6 ML SQ SCH (20:27)
[2020-04-20] MEDS: OXYBUTYNIN 5 MG TAB.SR.24H PO SCH (20:27)
[2020-04-21 00:06] VITALS: BP 162/78
[2020-04-21] MEDS: ZOSYN 3.375GM+NS 50ML 50 ML IV SCH ×2 (03:01→14:57)
[2020-04-21 04:29] VITALS: BP 157/72
[2020-04-21] MEDS: LACTATED RINGERS 1000ML 1,000 ML IV SCH ×2 (05:49→20:42)
[2020-04-21 06:06] LABS: BASOPHILS % (AUTO) 0.1 % (0.0-5.0); EOSINOPHILS % (AUTO) 0.1 % (0.0-8.0); LYMPHOCYTES % (AUTO) 4.2 % (21.0-51.0); MEAN CORPUSCULAR HEMOGLOBIN 30.2 pg (27.0-33.0); MEAN CORPUSCULAR VOLUME 97.3 fL (79-99); MONOCYTES % (AUTO) 9.5 % (3.0-13.0); NEUTROPHILS % (AUTO) 69.5 % (40.0-77.0); PLATELET COUNT (AUTO) 58 K/uL (130-400); RED BLOOD CELL COUNT(AUTO) 2.98 MIL/uL (4.00-5.50); RED CELL DISTRIBUTION WIDTH 18.1 % (11.0-15.5); WHITE BLOOD COUNT (AUTO) 9.3 K/uL (4.8-10.8)
[2020-04-21 07:13] LABS: ALBUMIN 1.6 g/dL (3.5-5.0); BILIRUBIN,TOTAL 0.4 mg/dL (0.2-1.0); CREATININE 1.3 mg/dL (0.5-1.5); TOTAL PROTEIN, SERUM 4.7 g/dL (6.0-8.3)
[2020-04-21 07:15] LABS: POTASSIUM 2.7 mmol/L (3.5-5.1)
[2020-04-21 08:00] VITALS: BP 154/72
[2020-04-21] MEDS: POTASSIUM CHLORIDE 10MEQ/100ML 100 ML IV PRN ×2 (08:00→18:21)
[2020-04-21] MEDS: LIDOCAINE HCL-MPF 1% 2ML VIAL IV PRN ×2 (08:01→18:21)
[2020-04-21 11:42] VITALS: BP 160/75
[2020-04-21] MEDS: FAMOTIDINE/PF 20 MG/2 ML VIAL IV SCH (14:55)
[2020-04-21] MEDS: CYANOCOBALAMIN (VITAMIN B-12) 1000 MCG/ML 1ML VIAL SQ SCH (14:56)
[2020-04-21] MEDS: NIFEDIPINE ER 30 MG TAB PO SCH (14:56)
[2020-04-21] MEDS: AMIODARONE HCL 200 MG TABLET PO SCH (14:56)
[2020-04-21] MEDS: Vitamin B Complex/Vit C/Folic Acid PO SCH (14:56)
[2020-04-21] MEDS: MEGESTROL 400 MG/10 ML UDCUP PO SCH (14:56)
[2020-04-21] MEDS: TIMOLOL MALEATE 0.5% 5 ML BOTTLE OP SCH ×2 (14:58→20:43)
[2020-04-21] MEDS: BRIMONIDINE TARTRATE 0.2% 5 ML BOTTLE OP SCH ×2 (14:58→20:44)
[2020-04-21 17:24] VITALS: BP 162/82
[2020-04-21] MEDS: OXYBUTYNIN 5 MG TAB.SR.24H PO SCH (20:44)
[2020-04-21] MEDS: ENOXAPARIN SODIUM 60 MG/0.6 ML SQ SCH (20:45)
[2020-04-21 20:49] VITALS: BP 153/79
[2020-04-21] MEDS ORDERED: POTASSIUM CHLORIDE 10MEQ/100ML 100 ML IV PRN (21:00)
[2020-04-21] MEDS ORDERED: LIDOCAINE HCL-MPF 1% 2ML VIAL IV PRN (21:00)
[2020-04-21] MEDS ORDERED: POTASSIUM CHLORIDE 20 MEQ ERTAB PO PRN (21:00)
[2020-04-21] MEDS: POTASSIUM CHLORIDE 10% ELIXIR 20 MEQ/15 ML UDCUP PO PRN (21:51)
[2020-04-22] VITALS: BP 138/78
[2020-04-22] MEDS: MORPHINE SULFATE 2 MG/ML 1ML SYG IVP PRN ×2 (00:02→22:08)
[2020-04-22] MEDS: ACETAMINOPHEN EXTRA STRENGTH 500 MG TABLET PO PRN (01:14)
[2020-04-22 04:07] VITALS: BP 122/67
[2020-04-22 05:07] LABS: HEMATOCRIT 27.1 % (36-48); MEAN CORPUSCULAR HEMOGLOBIN 29.8 pg (27.0-33.0); MEAN CORPUSCULAR HGB CONC 32.8 g/dL (32.0-36.0); MEAN CORPUSCULAR VOLUME 90.6 fL (79-99); PLATELET COUNT (AUTO) 132 K/uL (130-400); RED BLOOD CELL COUNT(AUTO) 2.99 MIL/uL (4.00-5.50); RED CELL DISTRIBUTION WIDTH 17.5 % (11.0-15.5); WHITE BLOOD COUNT (AUTO) 9.2 K/uL (4.8-10.8)
[2020-04-22 05:26] LABS: CREATININE 1.1 mg/dL (0.5-1.5); MAGNESIUM 1.7 mg/dL (1.80-2.40)
[2020-04-22 05:52] LABS: BAND NEUTROPHILS % (MANUAL) 9 % (0-2); BASOPHILS % (MANUAL) 1 % (0-2); EOSINOPHILS % (MANUAL) 1 % (1-6); LYMPHOCYTES % (MANUAL) 12 % (22-44); MAN.DIFF COMMENT-IMPRESSION MANUAL DIFFERENTIAL; METAMYELOCYTES % 1 % (0-0); MONOCYTES % (MANUAL) 6 % (2-9); SEGMENTED NEUTROPHILS % 70 % (40-70)
[2020-04-22 05:53] LABS: PLATELET MORPHOLOGY COMMENT MARKED DECREASE
[2020-04-22] MEDS: MAGNESIUM 2GM PREMIX 50ML 50 ML IV PRN ×2 (06:09→14:46)
[2020-04-22] MEDS: POTASSIUM CHLORIDE 10% ELIXIR 20 MEQ/15 ML UDCUP PO PRN ×4 (06:09→20:34)
[2020-04-22 08:16] VITALS: BP 133/75
[2020-04-22] MEDS: LACTATED RINGERS 1000ML 1,000 ML IV SCH ×2 (08:25→21:45)
[2020-04-22] MEDS: CYANOCOBALAMIN (VITAMIN B-12) 1000 MCG/ML 1ML VIAL SQ SCH (10:09)
[2020-04-22] MEDS: NIFEDIPINE ER 30 MG TAB PO SCH (10:09)
[2020-04-22] MEDS: Vitamin B Complex/Vit C/Folic Acid PO SCH (10:09)
[2020-04-22] MEDS: MEGESTROL 400 MG/10 ML UDCUP PO SCH (10:09)
[2020-04-22] MEDS: AMIODARONE HCL 200 MG TABLET PO SCH (10:09)
[2020-04-22] MEDS: FAMOTIDINE/PF 20 MG/2 ML VIAL IV SCH (10:09)
[2020-04-22] MEDS: TIMOLOL MALEATE 0.5% 5 ML BOTTLE OP SCH ×2 (10:10→20:35)
[2020-04-22] MEDS: BRIMONIDINE TARTRATE 0.2% 5 ML BOTTLE OP SCH ×2 (10:10→20:36)
[2020-04-22 11:40] VITALS: BP 130/80
--- NOTE | 2020-04-22 12:58 | NUR ---
RD FOLLOW UP At time of screen pt's diet order was CLD As per RN, pt was tolerating CLD. PO consumption of 50% as per RN Pt has been advanced to a FLD As per EMR, d/c of NG suction tube Pt has had small bowel movements LBM: 04/21/20 RD RECOMMENDATION: Ensure BID. Monitor Tolerance increase as tolerated to TID. When medically feasible to advance, consider GI soft diet. Follow general surgery recommendations. Monitor pt's tolerance to diet. RD will continue to follow Contact as nutritional concerns arise LABS: WBC 9.2, K 3.0, NA 143, GFR 50, CREAT 1.1, TOT CA 7.4, PHOS 2.2, MG 1.7, ALK PHOS 46, TOT PRO 4.7, ALB 1.6 Addendum: 04/22/20 at [address] Amended: Links added.
--- NOTE | 2020-04-22 16:29 | NUR ---
CM NOTE/[facility] NEW REFERRAL FOR HOME HEALTH FOR PHYSICAL THERAPY. [facility] COMPLETED FOR [facility] PER [facility]. [facility] SENT CLINICAL REFERRAL VIA FAX, DAMEON MADE AWARE. CM TO FOLLOW UP FOR APPROVAL. PER DR. BARROW, POSSIBLE DC HOME IN 24HR.
[2020-04-22 17:17] VITALS: BP 144/89
[2020-04-22 19:00] VITALS: BP 142/77
[2020-04-22] MEDS: OXYBUTYNIN 5 MG TAB.SR.24H PO SCH (20:34)
[2020-04-22] MEDS: ENOXAPARIN SODIUM 60 MG/0.6 ML SQ SCH (20:35)
[2020-04-23] VITALS: BP 115/79
[2020-04-23] MEDS: ONDANSETRON HCL 4 MG/2 ML VIAL IVP PRN (00:56)
[2020-04-23 04:00] VITALS: BP 125/56
[2020-04-23 04:52] LABS: BASOPHILS % (AUTO) 0.6 % (0.0-5.0); HEMATOCRIT 30.5 % (36-48); LYMPHOCYTES % (AUTO) 3.7 % (21.0-51.0); MEAN CORPUSCULAR HEMOGLOBIN 30.1 pg (27.0-33.0); MEAN CORPUSCULAR HGB CONC 33.1 g/dL (32.0-36.0); MEAN CORPUSCULAR VOLUME 90.8 fL (79-99); MONOCYTES % (AUTO) 8.2 % (3.0-13.0); NEUTROPHILS % (AUTO) 79.6 % (40.0-77.0); PLATELET COUNT (AUTO) 179 K/uL (130-400); RED BLOOD CELL COUNT(AUTO) 3.36 MIL/uL (4.00-5.50); RED CELL DISTRIBUTION WIDTH 18.2 % (11.0-15.5); WHITE BLOOD COUNT (AUTO) 13.2 K/uL (4.8-10.8)
[2020-04-23 05:04] LABS: CREATININE 1.3 mg/dL (0.5-1.5); MAGNESIUM 2.3 mg/dL (1.80-2.40); POTASSIUM 3.7 mmol/L (3.5-5.1)
--- NOTE | 2020-04-23 08:00 | NUR ---
ASSESSMENT NOTE PT IS AAOX2 , PT VS STABLE, SITTING UP EATING BREAKFAST, VOICES NO PAIN AT THIS TIME.
[2020-04-23 08:39] VITALS: BP 97/63
[2020-04-23] MEDS: CYANOCOBALAMIN (VITAMIN B-12) 1000 MCG/ML 1ML VIAL SQ SCH (09:34)
[2020-04-23] MEDS: NIFEDIPINE ER 30 MG TAB PO SCH (09:35)
[2020-04-23] MEDS: FAMOTIDINE/PF 20 MG/2 ML VIAL IV SCH (09:35)
[2020-04-23] MEDS: Vitamin B Complex/Vit C/Folic Acid PO SCH (09:35)
[2020-04-23] MEDS: AMIODARONE HCL 200 MG TABLET PO SCH (09:36)
[2020-04-23] MEDS: BRIMONIDINE TARTRATE 0.2% 5 ML BOTTLE OP SCH (09:36)
[2020-04-23] MEDS: MEGESTROL 400 MG/10 ML UDCUP PO SCH (09:36)
[2020-04-23] MEDS: TIMOLOL MALEATE 0.5% 5 ML BOTTLE OP SCH (09:37)
[2020-04-23 11:36] VITALS: BP 117/75
[2020-04-23] MEDS: LACTATED RINGERS 1000ML 1,000 ML IV SCH (11:42)
--- NOTE | 2020-04-23 14:02 | NUR ---
CALLED [facility] SPOKE TO KHADAR BRIGHT AND GAVE REPORT
--- NOTE | 2020-04-23 14:06 | NUR ---
EMS CALLED NO ETA TIME.
--- NOTE | 2020-04-23 15:37 | NUR ---
D/C PT IS AA0X2, VS STABLE, PT VOICES NO PAIN, CHOWDHURY REMOVED. UPON D/C. D/C INSTRUCTIONS GIVEN TO DAUGHTER, EMS TRANSFERRED TO HOME. NO COMPLICATIONS UPON D/C.
[2020-04-26] MEDS ORDERED: CYANOCOBALAMIN (VITAMIN B-12) 1,000 MCG TABLET PO SCH (09:00)
== END 2020-04-23 15:30 | disposition home health service (06) | DRG 871 ==
LOC: EDH 12:13 → EDHIP 14:45 → 3CH 19:43
PROVIDERS: ADMIT Internal Medicine Hematology & Oncology; ATTEND Internal Medicine Hematology & Oncology
PROC: 30233N1 Transfusion of Nonautologous Red Blood Cells into Peripheral Vein, Percutaneous Approach (ICD-10-PCS; principal; 2020-04-14)
PROC: 0D9670Z Drainage of Stomach with Drainage Device, Via Natural or Artificial Opening (ICD-10-PCS; 2020-04-16)
DX: A41.9 Sepsis, unspecified organism (principal); D61.810 Antineoplastic chemotherapy induced pancytopenia; D84.9 Immunodeficiency, unspecified; N39.0 Urinary tract infection, site not specified; N17.9 Acute kidney failure, unspecified; K56.609 Unspecified intestinal obstruction, unspecified as to partial versus complete obstruction; B96.20 Unspecified Escherichia coli [E. coli] as the cause of diseases classified elsewhere; B96.1 Klebsiella pneumoniae [K. pneumoniae] as the cause of diseases classified elsewhere; I48.0 Paroxysmal atrial fibrillation; E87.6 Hypokalemia; K52.9 Noninfective gastroenteritis and colitis, unspecified; C67.9 Malignant neoplasm of bladder, unspecified; H91.90 Unspecified hearing loss, unspecified ear; H40.9 Unspecified glaucoma; M19.90 Unspecified osteoarthritis, unspecified site; Z96.659 Presence of unspecified artificial knee joint; E78.5 Hyperlipidemia, unspecified; E78.00 Pure hypercholesterolemia, unspecified; T45.1X5A Adverse effect of antineoplastic and immunosuppressive drugs, initial encounter; I10 Essential (primary) hypertension; K21.9 Gastro-esophageal reflux disease without esophagitis; E88.09 Other disorders of plasma-protein metabolism, not elsewhere classified; R53.81 Other malaise; F41.9 Anxiety disorder, unspecified; E83.42 Hypomagnesemia; I25.10 Atherosclerotic heart disease of native coronary artery without angina pectoris; Z88.5 Allergy status to narcotic agent; Z88.2 Allergy status to sulfonamides; Z88.8 Allergy status to other drugs, medicaments and biological substances; Z88.1 Allergy status to other antibiotic agents; Z91.041 Radiographic dye allergy status; Z79.899 Other long term (current) drug therapy; Z85.42 Personal history of malignant neoplasm of other parts of uterus; Z90.5 Acquired absence of kidney; Z85.528 Personal history of other malignant neoplasm of kidney; Z90.49 Acquired absence of other specified parts of digestive tract; Y92.89 Other specified places as the place of occurrence of the external cause; Z92.3 Personal history of irradiation
CPT/HCPCS: 36415; 36430; 71045; 74018; 74176; 80048; 80053; 80202; 81001; 83605; 83735; 83880; 84100; 84132; 84484; 84550; 85025; 85027; 85610; 85730; 86140; 86850; 86900; 86901; 86923; 87040; 87077; 87088; 87186; 93005; 93971; 97039; A4344; C9113; G0378; J0780; J1650; J1940; J2060; J2405; J2543; J3370; J3420; J3475; J3490; J7030; J7120; P9016

== ENCOUNTER 2020-06-03 15:12 | Inpatient (IN) | payer MEDICARE ==
[~2020-06-03] VITALS: Ht 167.6 cm; Wt 79.4 kg
[~2020-06-03 15:12] MED LIST changes: -ACET-2743 PO; +ACET-66 PO; -BIMA12.5OS OU; +CEPH500C2 PO; +DIPH1TAB24 PO; -FERS325 PO; -FOLI1 PO; +MAGN400T53 PO; -MULT-1203 PO; -NITR100C4 PO; +OMEP20CA12 PO; +ONDA8TAB12 PO; +OXYB10TA30 PO
[2020-06-03 16:28] LABS: BASOPHILS % (AUTO) 0.1 % (0.0-5.0); EOSINOPHILS % (AUTO) 0.2 % (0.0-8.0); HEMATOCRIT 33.7 % (36-48); LYMPHOCYTES % (AUTO) 1.9 % (21.0-51.0); MEAN CORPUSCULAR HEMOGLOBIN 31.3 pg (27.0-33.0); MEAN CORPUSCULAR HGB CONC 33.5 g/dL (32.0-36.0); MEAN CORPUSCULAR VOLUME 93.4 fL (79-99); MONOCYTES % (AUTO) 4.1 % (3.0-13.0); NEUTROPHILS % (AUTO) 92.5 % (40.0-77.0); PLATELET COUNT (AUTO) 113 K/uL (130-400); RED BLOOD CELL COUNT(AUTO) 3.61 MIL/uL (4.00-5.50); RED CELL DISTRIBUTION WIDTH 19.2 % (11.0-15.5); WHITE BLOOD COUNT (AUTO) 11.8 K/uL (4.8-10.8)
[2020-06-03 16:52] LABS: INR 1.06 (0.85-1.15); PROTHROMBIN TIME 11.3 SEC (9.6-11.6)
[2020-06-03 17:02] LABS: CREATININE 1.3 mg/dL (0.5-1.5); POTASSIUM 3.3 mmol/L (3.5-5.1)
[2020-06-03 17:05] LABS: ALBUMIN 2.6 g/dL (3.5-5.0); TOTAL PROTEIN, SERUM 6.1 g/dL (6.0-8.3)
[2020-06-03 17:09] LABS: APPEARANCE,URINE CLOUDY (CLEAR); BILIRUBIN,URINE SMALL (NEGATIVE); COLOR,URINE YELLOW (YELLOW); GLUCOSE, URINE (UA) NEGATIVE (NEGATIVE); KETONES,URINE 5 mg/dL (NEGATIVE); LEUKOCYTE ESTERASE ,URINE SMALL (NEGATIVE); NITRATE,URINE NEGATIVE (NEGATIVE); OCCULT BLOOD,URINE MODERATE (NEGATIVE); PROTEIN,URINE >=300 mg/dL (NEGATIVE); UROBILINOGEN,URINE 0.2 mg/dL (0.2-1.0)
[2020-06-03 17:16] LABS: BACTERIA,URINE Many /HPF (None Seen); SQUAMOUS EPITHELIAL CELL,UR 0-2 /HPF (0-2); WBC,URINE >100 /HPF (0-1)
[2020-06-03] MEDS ORDERED: CEFTRIAXONE 1G VIAL ONE (18:04)
[2020-06-03] MEDS ORDERED: ACETAMINOPHEN 650 MG SUPPOSITORY RC PRN (20:45)
[2020-06-03] MEDS: 0.9%NACL 1000ML 1,000 ML IV SCH ×2 (20:45→23:34)
[2020-06-03] MEDS ORDERED: ONDANSETRON 4MG INJ IVP PRN (20:45)
[2020-06-03] MEDS ORDERED: DIPHENOXYLATE HCL/ATROPINE 2.5/0.025 MG TAB PO PRN (20:45)
[2020-06-03] MEDS: AZITHROMYCIN 500MG+NS 250ML 250 ML IV SCH (21:00)
[2020-06-03] MEDS ORDERED: AMIODARONE 200 MG TABLET PO ONE (21:11)
[2020-06-03] MEDS ORDERED: AZITHROMYCIN 500MG+NS 250ML 250 ML IV ONE (21:11)
[2020-06-03] MEDS ORDERED: FAMOTIDINE 20MG VIAL IV ONE (21:12)
[2020-06-03 22:15] VITALS: BP 150/73
[2020-06-04] MEDS: ACETAMINOPHEN 325 MG TAB PO PRN (00:47)
[2020-06-04 03:39] LABS: HEMATOCRIT 25.3 % (36-48); MEAN CORPUSCULAR HGB CONC 33.6 g/dL (32.0-36.0); MEAN CORPUSCULAR VOLUME 92.3 fL (79-99); PLATELET COUNT (AUTO) 92 K/uL (130-400); RED BLOOD CELL COUNT(AUTO) 2.74 MIL/uL (4.00-5.50); RED CELL DISTRIBUTION WIDTH 19.4 % (11.0-15.5); WHITE BLOOD COUNT (AUTO) 7.1 K/uL (4.8-10.8)
[2020-06-04 03:46] LABS: CREATININE 1.1 mg/dL (0.5-1.5); POTASSIUM 3.2 mmol/L (3.5-5.1)
[2020-06-04 04:17] LABS: BAND NEUTROPHILS % (MANUAL) 4 % (0-2); LYMPHOCYTES % (MANUAL) 2 % (22-44); MONOCYTES % (MANUAL) 4 % (2-9); SEGMENTED NEUTROPHILS % 90 % (40-70)
[2020-06-04 04:18] LABS: MAN.DIFF COMMENT-IMPRESSION MANUAL DIFFERENTIAL; PLATELET MORPHOLOGY COMMENT SLIGHTLY DECREASED
[2020-06-04 05:53] VITALS: BP 162/82
[2020-06-04] MEDS: AMIODARONE 200 MG TABLET PO SCH (09:04)
[2020-06-04] MEDS: FAMOTIDINE 20MG VIAL IV SCH (09:04)
[2020-06-04 09:53] VITALS: BP_SYST 103; BP_SYST 160; BP_DIAS 41; BP_DIAS 78
[2020-06-04] MEDS ORDERED: LIDOCAINE HCL-MPF 1% 2ML VIAL IV PRN (12:45)
[2020-06-04] MEDS ORDERED: POTASSIUM CHLORIDE 20MEQ/100ML 100 ML IV PRN (12:45)
[2020-06-04 13:38] VITALS: BP 143/73
[2020-06-04] MEDS: ASPIRIN 81MG CHEW TAB PO SCH (17:03)
[2020-06-04 17:37] VITALS: BP 135/76
[2020-06-04] MEDS ORDERED: CEFTRIAXONE 1G VIAL IVP SCH (18:00)
[2020-06-04 20:00] VITALS: BP 153/73
[2020-06-04] MEDS: AZITHROMYCIN 500MG+NS 250ML 250 ML IV SCH (21:21)
[2020-06-05] VITALS: BP 151/67
[2020-06-05 04:00] VITALS: BP 157/65
[2020-06-05 08:00] VITALS: BP 168/90
[2020-06-05] MEDS: ASPIRIN 81MG CHEW TAB PO SCH (08:06)
[2020-06-05] MEDS: AMIODARONE 200 MG TABLET PO SCH (08:06)
[2020-06-05] MEDS: FAMOTIDINE 20MG VIAL IV SCH (08:06)
[2020-06-05 12:00] VITALS: BP 156/69
[2020-06-05 16:00] VITALS: BP 137/68
[2020-06-05 20:00] VITALS: BP 150/81
[2020-06-05] MEDS: ZOSYN 3.375GM+NS 50ML 50 ML IV SCH (21:15)
[2020-06-05] MEDS: AZITHROMYCIN 500MG+NS 250ML 250 ML IV SCH (21:15)
[2020-06-06] VITALS: BP 138/72
[2020-06-06 04:00] VITALS: BP 159/77
[2020-06-06] MEDS: ZOSYN 3.375GM+NS 50ML 50 ML IV SCH ×3 (05:32→21:16)
[2020-06-06 08:33] LABS: HEMATOCRIT 25.8 % (36-48); MEAN CORPUSCULAR HEMOGLOBIN 30.7 pg (27.0-33.0); MEAN CORPUSCULAR HGB CONC 32.9 g/dL (32.0-36.0); MEAN CORPUSCULAR VOLUME 93.1 fL (79-99); RED BLOOD CELL COUNT(AUTO) 2.77 MIL/uL (4.00-5.50); RED CELL DISTRIBUTION WIDTH 19.2 % (11.0-15.5); WHITE BLOOD COUNT (AUTO) 5.6 K/uL (4.8-10.8)
[2020-06-06 08:46] LABS: POTASSIUM 3.1 mmol/L (3.5-5.1)
[2020-06-06] MEDS: AMIODARONE 200 MG TABLET PO SCH (10:03)
[2020-06-06] MEDS: ASPIRIN 81MG CHEW TAB PO SCH (10:03)
[2020-06-06] MEDS: FAMOTIDINE 20MG VIAL IV SCH (10:03)
[2020-06-06 12:00] VITALS: BP 155/70
[2020-06-06] MEDS: KCL 20 MEQ ERTAB PO PRN ×3 (12:41→21:16)
[2020-06-06 16:00] VITALS: BP 140/78
[2020-06-06 20:26] VITALS: BP 167/85
[2020-06-06] MEDS: AZITHROMYCIN 500MG+NS 250ML 250 ML IV SCH (21:16)
[2020-06-06 23:23] VITALS: BP 122/64
[2020-06-07] MEDS: 0.9%NACL 1000ML 1,000 ML IV SCH ×2 (02:11→14:35)
[2020-06-07 04:06] VITALS: BP 153/72
[2020-06-07] MEDS: ZOSYN 3.375GM+NS 50ML 50 ML IV SCH ×3 (04:30→21:31)
[2020-06-07] MEDS: KCL 20 MEQ ERTAB PO PRN ×2 (05:44→08:51)
[2020-06-07 08:00] VITALS: BP 148/75
[2020-06-07] MEDS: FAMOTIDINE 20MG VIAL IV SCH (08:50)
[2020-06-07] MEDS: AMIODARONE 200 MG TABLET PO SCH (08:51)
[2020-06-07] MEDS: ASPIRIN 81MG CHEW TAB PO SCH (08:51)
[2020-06-07 11:00] VITALS: BP 149/78
[2020-06-07 16:00] VITALS: BP 154/83
[2020-06-07 20:36] VITALS: BP 153/84
[2020-06-07] MEDS: AZITHROMYCIN 500MG+NS 250ML 250 ML IV SCH (21:31)
[2020-06-07] MEDS: ACETAMINOPHEN 325 MG TAB PO PRN (23:28)
[2020-06-08 00:23] VITALS: BP 158/81
[2020-06-08 04:09] VITALS: BP 139/67
[2020-06-08] MEDS: ZOSYN 3.375GM+NS 50ML 50 ML IV SCH ×3 (05:06→19:40)
[2020-06-08] MEDS: 0.9%NACL 1000ML 1,000 ML IV SCH (05:07)
[2020-06-08] MEDS: POTASSIUM CHLORIDE 10% ELIXIR 20 MEQ/15 ML UDCUP PO PRN ×2 (06:00→11:31)
[2020-06-08 08:00] VITALS: BP 154/75
[2020-06-08] MEDS: AMIODARONE 200 MG TABLET PO SCH (09:23)
[2020-06-08] MEDS: FAMOTIDINE 20MG VIAL IV SCH (09:23)
[2020-06-08] MEDS: ASPIRIN 81MG CHEW TAB PO SCH (09:23)
[2020-06-08 11:33] VITALS: BP 138/64
[2020-06-08] MEDS: KCL 20 MEQ ERTAB PO PRN (13:02)
[2020-06-08] MEDS: AZITHROMYCIN 500MG+NS 250ML 250 ML IV SCH (19:40)
[2020-06-08 20:06] VITALS: BP 139/84
== END 2020-06-09 02:30 | disposition home health service (06) | DRG 309 ==
LOC: EDH 15:12 → EDHIP 19:40 → 3DH 22:35
PROVIDERS: ADMIT Internal Medicine Hematology & Oncology; ATTEND Internal Medicine Hematology & Oncology
DX: I48.0 Paroxysmal atrial fibrillation (principal); N39.0 Urinary tract infection, site not specified; D63.8 Anemia in other chronic diseases classified elsewhere; B96.20 Unspecified Escherichia coli [E. coli] as the cause of diseases classified elsewhere; I95.1 Orthostatic hypotension; C67.9 Malignant neoplasm of bladder, unspecified; D64.81 Anemia due to antineoplastic chemotherapy; D69.59 Other secondary thrombocytopenia; E03.9 Hypothyroidism, unspecified; E78.5 Hyperlipidemia, unspecified; E86.0 Dehydration; T45.1X5A Adverse effect of antineoplastic and immunosuppressive drugs, initial encounter; K21.9 Gastro-esophageal reflux disease without esophagitis; Z20.822 Contact with and (suspected) exposure to COVID-19; I44.4 Left anterior fascicular block; D75.9 Disease of blood and blood-forming organs, unspecified; R79.89 Other specified abnormal findings of blood chemistry; Z88.9 Allergy status to unspecified drugs, medicaments and biological substances; Z90.5 Acquired absence of kidney; Z88.2 Allergy status to sulfonamides; Z88.8 Allergy status to other drugs, medicaments and biological substances; Z88.1 Allergy status to other antibiotic agents; Z91.041 Radiographic dye allergy status; Z90.49 Acquired absence of other specified parts of digestive tract; Y92.89 Other specified places as the place of occurrence of the external cause
CPT/HCPCS: 36415; 70450; 71045; 80048; 80053; 81001; 82948; 83605; 84132; 84484; 85025; 85027; 85610; 85730; 87040; 87077; 87088; 87186; 87426; 93005; G0378; J0456; J0696; J2543; J3480; J3490; J7030

== ENCOUNTER 2020-07-07 18:14 | Inpatient (IN) | payer MEDICARE ==
[~2020-07-07] VITALS: Ht 175.3 cm; Wt 82.1 kg
[~2020-07-07 18:14] MED LIST changes: -CEPH500C2 PO; -CYAN-52 PO; -FURO20TA6 PO; -NIFE30TA10 PO
[2020-07-07 18:47] LABS: APPEARANCE,URINE CLOUDY (CLEAR); BILIRUBIN,URINE MODERATE (NEGATIVE); COLOR,URINE YELLOW (YELLOW); GLUCOSE, URINE (UA) NEGATIVE (NEGATIVE); KETONES,URINE 5 mg/dL (NEGATIVE); LEUKOCYTE ESTERASE ,URINE LARGE (NEGATIVE); NITRATE,URINE NEGATIVE (NEGATIVE); OCCULT BLOOD,URINE MODERATE (NEGATIVE); PH,URINE 8.5 (5.0-8.0); PROTEIN,URINE 100 mg/dL (NEGATIVE); UROBILINOGEN,URINE 0.2 mg/dL (0.2-1.0)
[2020-07-07 18:54] LABS: WBC,URINE 26-50 /HPF (0-1)
[2020-07-07 18:55] LABS: SQUAMOUS EPITHELIAL CELL,UR Few /HPF (0-2); TRIPLE PHOSPHATE CRYSTAL,UR Rare /LPF (None Seen)
[2020-07-07 18:56] LABS: BACTERIA,URINE Moderate /HPF (None Seen)
[2020-07-07 19:00] LABS: BASOPHILS % (AUTO) 0.1 % (0.0-5.0); EOSINOPHILS % (AUTO) 0.2 % (0.0-8.0); HEMATOCRIT 24.6 % (36-48); LYMPHOCYTES % (AUTO) 5.7 % (21.0-51.0); MEAN CORPUSCULAR HEMOGLOBIN 30.7 pg (27.0-33.0); MEAN CORPUSCULAR HGB CONC 33.3 g/dL (32.0-36.0); MEAN CORPUSCULAR VOLUME 92.1 fL (79-99); MONOCYTES % (AUTO) 6.1 % (3.0-13.0); NEUTROPHILS % (AUTO) 87.1 % (40.0-77.0); PLATELET COUNT (AUTO) 264 K/uL (130-400); RED BLOOD CELL COUNT(AUTO) 2.67 MIL/uL (4.00-5.50); RED CELL DISTRIBUTION WIDTH 16.9 % (11.0-15.5); WHITE BLOOD COUNT (AUTO) 13.3 K/uL (4.8-10.8)
[2020-07-07 19:22] LABS: ALBUMIN 1.6 g/dL (3.5-5.0); BILIRUBIN,TOTAL 0.4 mg/dL (0.2-1.0); CREATININE 1.1 mg/dL (0.5-1.5); INR 1.07 (0.85-1.15); POTASSIUM 3.4 mmol/L (3.5-5.1); PROTHROMBIN TIME 11.6 SEC (9.6-11.6); TOTAL PROTEIN, SERUM 5.1 g/dL (6.0-8.3); TROPONIN I 0.26 ng/mL (0.00-0.06)
[2020-07-07 19:24] LABS: PARTIAL THROMBOPLASTIN TIME 35.4 SEC (26.3-35.5)
[2020-07-07] MEDS ORDERED: 0.9%NACL 1000ML 1,000 ML IV ONE (19:48)
[2020-07-07] MEDS ORDERED: CEFTRIAXONE 1G VIAL ONE (19:48)
[2020-07-07] MEDS ORDERED: POTASSIUM BICARB/CIT AC 25 MEQ TABLET.EFF ONE (19:56)
[2020-07-07] MEDS ORDERED: ONDANSETRON 4MG INJ IVP PRN (21:15)
[2020-07-07] MEDS: 0.9%NACL 1000ML 1,000 ML IV SCH (21:15)
[2020-07-08] MEDS: 0.9%NACL 1000ML 1,000 ML IV SCH ×2 (07:15→16:44)
[2020-07-08] MEDS ORDERED: AMIODARONE 200 MG TABLET PO ONE (09:24)
[2020-07-08] MEDS ORDERED: PREDNISONE 20 MG TABLET ONE (09:25)
[2020-07-08] MEDS ORDERED: TAMSULOSIN HCL 0.4 MG CAP.ER.24H ONE (09:25)
[2020-07-08] MEDS ORDERED: MAGNESIUM OXIDE 400 MG TABLET PO ONE (09:25)
[2020-07-08] MEDS ORDERED: DICYCLOMINE HCL 20 MG TAB ONE (09:27)
[2020-07-08] MEDS ORDERED: FOLIC ACID 1 MG TABLET ONE (09:27)
[2020-07-08] MEDS ORDERED: SERTRALINE HCL 50 MG TABLET ONE (09:27)
[2020-07-08] MEDS ORDERED: LORAZEPAM 2 MG/ML 1 ML VIAL ONE (10:44)
[2020-07-08] MEDS ORDERED: 0.9%NACL 1000ML 1,000 ML IV ONE (13:10)
[2020-07-08 13:30] VITALS: BP 120/69
[2020-07-08 14:45] LABS: HEMATOCRIT 24.8 % (36-48); MEAN CORPUSCULAR HEMOGLOBIN 30.7 pg (27.0-33.0); MEAN CORPUSCULAR HGB CONC 33.5 g/dL (32.0-36.0); MEAN CORPUSCULAR VOLUME 91.9 fL (79-99); RED BLOOD CELL COUNT(AUTO) 2.7 MIL/uL (4.00-5.50); RED CELL DISTRIBUTION WIDTH 16.9 % (11.0-15.5); WHITE BLOOD COUNT (AUTO) 12.4 K/uL (4.8-10.8)
[2020-07-08 14:53] LABS: CREATININE 1.2 mg/dL (0.5-1.5); POTASSIUM 4.1 mmol/L (3.5-5.1)
[2020-07-08] MEDS ORDERED: SERT-438 PO (16:25)
[2020-07-08] MEDS ORDERED: DICY20TA3 PO (16:25)
[2020-07-08] MEDS ORDERED: CEPH500C2 PO (16:25)
[2020-07-08] MEDS ORDERED: FERR324T PO (16:25)
[2020-07-08 16:30] VITALS: BP 130/59
[2020-07-08] MEDS ORDERED: MAGNESIUM OXIDE 400 MG TABLET PO PRN (16:30)
[2020-07-08] MEDS ORDERED: DIPHENOXYLATE HCL/ATROPINE 2.5/0.025 MG TAB PO PRN (16:30)
[2020-07-08] MEDS ORDERED: DICYCLOMINE HCL 20 MG TAB PO PRN (16:30)
[2020-07-08] MEDS: MEROPENEM 1 GM VIAL IVP SCH (16:44)
[2020-07-08] MEDS: TAMSULOSIN HCL 0.4 MG CAP.ER.24H PO SCH (16:44)
[2020-07-08] MEDS ORDERED: CEFTRIAXONE 1G VIAL IVP SCH (18:00)
[2020-07-08] MEDS ORDERED: FERROUS FUMARATE 324 MG TABLET ONE (19:40)
[2020-07-08 19:50] VITALS: BP 114/57
[2020-07-08] MEDS: FERROUS GLUCONATE TABLET PO SCH (20:25)
[2020-07-08] MEDS ORDERED: FERROUS GLUCONATE 324 MG PO SCH (21:00)
[2020-07-08 23:42] VITALS: BP 125/60
[2020-07-09 04:00] VITALS: BP_SYST 135; BP_SYST 139; BP_DIAS 56; BP_DIAS 63
[2020-07-09] MEDS: MEROPENEM 1 GM VIAL IVP SCH ×2 (04:29→15:53)
[2020-07-09 08:00] VITALS: BP 123/58
[2020-07-09] MEDS ORDERED: [UNRECOGNIZED DRUG - OTHER] PO SCH (09:00)
[2020-07-09] MEDS ORDERED: VITAMIN B COMP W C PO SCH (09:00)
[2020-07-09] MEDS ORDERED: FOLIC ACID PO SCH (09:00)
[2020-07-09] MEDS ORDERED: NON-FORMULARY MEDICATION 1 EACH (Sertraline HCl 25 MG) PO SCH (09:00)
[2020-07-09] MEDS ORDERED: AMIODARONE HCL 100 MG PO SCH (09:00)
[2020-07-09] MEDS: SERTRALINE HCL 50 MG TABLET PO SCH (10:52)
[2020-07-09] MEDS: AMIODARONE 200 MG TABLET PO SCH (10:52)
[2020-07-09] MEDS: Vitamin B Complex/Vit C/Folic Acid PO SCH (10:52)
[2020-07-09] MEDS: FERROUS GLUCONATE TABLET PO SCH ×3 (10:54→21:15)
[2020-07-09 12:02] VITALS: BP 141/63
[2020-07-09 12:29] LABS: MEAN CORPUSCULAR HEMOGLOBIN 30.9 pg (27.0-33.0); MEAN CORPUSCULAR HGB CONC 33.5 g/dL (32.0-36.0); MEAN CORPUSCULAR VOLUME 92.4 fL (79-99); PLATELET COUNT (AUTO) 239 K/uL (130-400); RED BLOOD CELL COUNT(AUTO) 2.49 MIL/uL (4.00-5.50); RED CELL DISTRIBUTION WIDTH 16.9 % (11.0-15.5); WHITE BLOOD COUNT (AUTO) 11.5 K/uL (4.8-10.8)
[2020-07-09 13:29] LABS: LYMPHOCYTES % (MANUAL) 6 % (22-44); MAN.DIFF COMMENT-IMPRESSION MANUAL DIFFERENTIAL; MONOCYTES % (MANUAL) 4 % (2-9); PLATELET MORPHOLOGY COMMENT ADEQUATE; SEGMENTED NEUTROPHILS % 90 % (40-70)
[2020-07-09] MEDS: 0.9%NACL 1000ML 1,000 ML IV SCH (15:54)
[2020-07-09 16:00] VITALS: BP 140/56
[2020-07-09] MEDS: LORAZEPAM 0.5 MG TABLET PO PRN (17:39)
[2020-07-09] MEDS: TAMSULOSIN HCL 0.4 MG CAP.ER.24H PO SCH (17:39)
[2020-07-09 19:32] VITALS: BP 106/51
[2020-07-09 23:22] VITALS: BP 105/50
[2020-07-10] MEDS: 0.9%NACL 1000ML 1,000 ML IV SCH ×3 (02:12→20:35)
[2020-07-10] MEDS: LORAZEPAM 0.5 MG TABLET PO PRN (03:08)
[2020-07-10] MEDS: MEROPENEM 1 GM VIAL IVP SCH ×2 (03:08→16:36)
[2020-07-10 04:03] VITALS: BP 125/59
[2020-07-10] MEDS: Vitamin B Complex/Vit C/Folic Acid PO SCH (09:03)
[2020-07-10] MEDS: AMIODARONE 200 MG TABLET PO SCH (09:04)
[2020-07-10] MEDS: FERROUS GLUCONATE TABLET PO SCH ×3 (09:04→20:34)
[2020-07-10] MEDS: SERTRALINE HCL 50 MG TABLET PO SCH (09:04)
[2020-07-10 10:17] VITALS: BP 107/68
[2020-07-10 12:19] VITALS: BP 111/53
[2020-07-10 13:33] LABS: CREATININE 1.2 mg/dL (0.5-1.5); POTASSIUM 3.3 mmol/L (3.5-5.1)
[2020-07-10] MEDS: TAMSULOSIN HCL 0.4 MG CAP.ER.24H PO SCH (16:36)
[2020-07-10] MEDS ORDERED: POTASSIUM CHLORIDE 20MEQ/100ML 100 ML IV PRN (16:45)
[2020-07-10] MEDS ORDERED: KCL 20 MEQ ERTAB PO PRN (16:45)
[2020-07-10] MEDS ORDERED: LIDOCAINE HCL-MPF 1% 2ML VIAL IV PRN (16:45)
[2020-07-10 17:25] VITALS: BP 109/57
[2020-07-10] MEDS: POTASSIUM CHLORIDE 10% ELIXIR 20 MEQ/15 ML UDCUP PO PRN (18:43)
[2020-07-10 20:12] VITALS: BP 137/64
[2020-07-11 00:12] VITALS: BP 113/48
[2020-07-11 04:12] VITALS: BP 104/51
[2020-07-11] MEDS: MEROPENEM 1 GM VIAL IVP SCH ×2 (04:15→16:28)
[2020-07-11] MEDS: POTASSIUM CHLORIDE 10% ELIXIR 20 MEQ/15 ML UDCUP PO PRN ×2 (04:44→07:21)
[2020-07-11] MEDS: 0.9%NACL 1000ML 1,000 ML IV SCH ×2 (06:11→16:29)
[2020-07-11 08:32] VITALS: BP 127/52
[2020-07-11] MEDS: FERROUS GLUCONATE TABLET PO SCH ×3 (09:28→20:37)
[2020-07-11] MEDS: AMIODARONE 200 MG TABLET PO SCH (09:28)
[2020-07-11] MEDS: Vitamin B Complex/Vit C/Folic Acid PO SCH (09:29)
[2020-07-11] MEDS: SERTRALINE HCL 50 MG TABLET PO SCH (09:29)
[2020-07-11 12:06] LABS: BASOPHILS % (AUTO) 0.2 % (0.0-5.0); EOSINOPHILS % (AUTO) 0.2 % (0.0-8.0); HEMATOCRIT 25.5 % (36-48); LYMPHOCYTES % (AUTO) 8.7 % (21.0-51.0); MEAN CORPUSCULAR HGB CONC 32.5 g/dL (32.0-36.0); MEAN CORPUSCULAR VOLUME 95.1 fL (79-99); MONOCYTES % (AUTO) 5.8 % (3.0-13.0); NEUTROPHILS % (AUTO) 83.6 % (40.0-77.0); PLATELET COUNT (AUTO) 258 K/uL (130-400); RED BLOOD CELL COUNT(AUTO) 2.68 MIL/uL (4.00-5.50); RED CELL DISTRIBUTION WIDTH 17.3 % (11.0-15.5); WHITE BLOOD COUNT (AUTO) 11.8 K/uL (4.8-10.8)
[2020-07-11 12:12] LABS: POTASSIUM 4.2 mmol/L (3.5-5.1)
[2020-07-11 12:17] LABS: ALBUMIN 1.4 g/dL (3.5-5.0); BILIRUBIN,TOTAL 0.2 mg/dL (0.2-1.0); TOTAL PROTEIN, SERUM 4.6 g/dL (6.0-8.3)
[2020-07-11] MEDS: TAMSULOSIN HCL 0.4 MG CAP.ER.24H PO SCH (16:28)
[2020-07-11 17:37] VITALS: BP 125/59
[2020-07-11] MEDS: LORAZEPAM 0.5 MG TABLET PO PRN (18:21)
[2020-07-11 20:00] VITALS: BP 118/48
[2020-07-11 23:31] VITALS: BP 116/48
[2020-07-12] MEDS: 0.9%NACL 1000ML 1,000 ML IV SCH ×3 (01:15→23:17)
[2020-07-12] MEDS: LORAZEPAM 0.5 MG TABLET PO PRN (03:19)
[2020-07-12] MEDS: MEROPENEM 1 GM VIAL IVP SCH ×2 (03:19→17:09)
[2020-07-12 04:00] VITALS: BP 115/53
[2020-07-12 05:41] LABS: CREATININE 1.1 mg/dL (0.5-1.5)
[2020-07-12 08:00] VITALS: BP 121/58
[2020-07-12] MEDS: Vitamin B Complex/Vit C/Folic Acid PO SCH (11:13)
[2020-07-12] MEDS: SERTRALINE HCL 50 MG TABLET PO SCH (11:13)
[2020-07-12] MEDS: FERROUS GLUCONATE TABLET PO SCH ×3 (11:13→20:04)
[2020-07-12] MEDS: AMIODARONE 200 MG TABLET PO SCH (11:13)
[2020-07-12 12:00] VITALS: BP 137/59
[2020-07-12 16:03] VITALS: BP 124/55
[2020-07-12] MEDS: TAMSULOSIN HCL 0.4 MG CAP.ER.24H PO SCH (17:09)
[2020-07-12 19:30] VITALS: BP 115/71
[2020-07-12 23:54] VITALS: BP 107/54
[2020-07-13] MEDS: MEROPENEM 1 GM VIAL IVP SCH ×2 (03:30→15:57)
[2020-07-13 04:12] VITALS: BP 97/47
[2020-07-13] MEDS: 0.9%NACL 1000ML 1,000 ML IV SCH ×2 (06:30→21:25)
[2020-07-13 08:26] VITALS: BP 111/53
[2020-07-13 11:29] VITALS: BP 111/54
[2020-07-13] MEDS: AMIODARONE 200 MG TABLET PO SCH (11:59)
[2020-07-13] MEDS: SERTRALINE HCL 50 MG TABLET PO SCH (11:59)
[2020-07-13] MEDS: Vitamin B Complex/Vit C/Folic Acid PO SCH (11:59)
[2020-07-13] MEDS: TAMSULOSIN HCL 0.4 MG CAP.ER.24H PO SCH (12:00)
[2020-07-13] MEDS: FERROUS GLUCONATE TABLET PO SCH ×3 (12:00→21:10)
[2020-07-13 16:31] VITALS: BP 113/56
[2020-07-13 20:13] VITALS: BP 103/56
[2020-07-13 23:26] VITALS: BP 116/76
[2020-07-14 03:55] VITALS: BP 99/49
[2020-07-14 04:38] VITALS: BP 104/58
[2020-07-14] MEDS: MEROPENEM 1 GM VIAL IVP SCH ×2 (04:58→15:48)
[2020-07-14 08:14] VITALS: BP 94/52
[2020-07-14] MEDS: AMIODARONE 200 MG TABLET PO SCH (10:30)
[2020-07-14] MEDS: TAMSULOSIN HCL 0.4 MG CAP.ER.24H PO SCH (10:30)
[2020-07-14] MEDS: SERTRALINE HCL 50 MG TABLET PO SCH (10:30)
[2020-07-14] MEDS: Vitamin B Complex/Vit C/Folic Acid PO SCH (10:30)
[2020-07-14] MEDS: FERROUS GLUCONATE TABLET PO SCH ×3 (10:30→20:05)
[2020-07-14 11:42] VITALS: BP 88/43
[2020-07-14] MEDS ORDERED: 0.9% NACL 500ML IV.SOLN 500 ML IV SCH (13:51)
[2020-07-14 16:49] VITALS: BP 81/48
[2020-07-14 20:00] VITALS: BP 98/52
[2020-07-15] VITALS: BP 94/52
[2020-07-15 04:00] VITALS: BP 105/53
[2020-07-15] MEDS: MEROPENEM 1 GM VIAL IVP SCH ×2 (05:04→17:25)
[2020-07-15] MEDS ORDERED: ACETAMINOPHEN 650 MG/20.3 ML UDCUP ONE (05:44)
[2020-07-15 08:37] VITALS: BP 112/63
[2020-07-15] MEDS: FERROUS GLUCONATE TABLET PO SCH ×2 (09:00→17:25)
[2020-07-15] MEDS: SERTRALINE HCL 50 MG TABLET PO SCH (09:00)
[2020-07-15] MEDS: Vitamin B Complex/Vit C/Folic Acid PO SCH (09:01)
[2020-07-15] MEDS: AMIODARONE 200 MG TABLET PO SCH (09:02)
[2020-07-15 11:40] VITALS: BP 124/59
[2020-07-15 16:50] VITALS: BP 119/66
[2020-07-15] MEDS: TAMSULOSIN HCL 0.4 MG CAP.ER.24H PO SCH (17:25)
== END 2020-07-15 19:50 | disposition home health service (06) | DRG 690 ==
LOC: EDH 18:14 → EDHIP 20:30 → 3AH 07-08 13:47
PROVIDERS: ADMIT Internal Medicine Hematology & Oncology; ATTEND Internal Medicine Hematology & Oncology
DX: N39.0 Urinary tract infection, site not specified (principal); E87.1 Hypo-osmolality and hyponatremia; C67.9 Malignant neoplasm of bladder, unspecified; D64.9 Anemia, unspecified; E86.0 Dehydration; I48.91 Unspecified atrial fibrillation; E11.22 Type 2 diabetes mellitus with diabetic chronic kidney disease; Z66 Do not resuscitate; I51.9 Heart disease, unspecified; H40.9 Unspecified glaucoma; N18.9 Chronic kidney disease, unspecified; Z74.01 Bed confinement status; Z85.51 Personal history of malignant neoplasm of bladder; Z85.528 Personal history of other malignant neoplasm of kidney; Z88.1 Allergy status to other antibiotic agents; Z88.2 Allergy status to sulfonamides; Z88.8 Allergy status to other drugs, medicaments and biological substances
CPT/HCPCS: 36415; 70450; 71045; 74176; 80048; 80053; 81001; 82550; 83605; 83874; 84132; 84145; 84484; 85025; 85027; 85610; 85730; 86900; 86901; 87040; 87077; 87088; 87186; 93005; 99291; G0378; J0696; J2060; J2185; J2405; J7030